=== PATIENT | female | born 1940 | race African-American/Black ===

== ENCOUNTER 2018-09-04 14:11 | Emergency (ER) | payer MEDICARE, MEDICAID ==
[~2018-09-04] VITALS: Ht 160 cm; Wt 54.4 kg
[2018-09-04] MEDS ORDERED: NACL 0.9% 1,000 ML IV ONE (14:15)
[2018-09-04] MEDS ORDERED: FUROSEMIDE 40 MG/4 ML VIAL IVP ONE (14:15)
[2018-09-04] MEDS ORDERED: ASPIRIN 81 MG TAB.CHEW PO ONE (14:15)
[2018-09-04 14:20] VITALS: BP_SYST 208
[2018-09-04 14:43] LABS: BASOPHILS % (AUTO) 0.5 % (0.0-2.0); EOSINOPHILS # (AUTO) 0.1 K/uL (0.0-0.4); EOSINOPHILS % (AUTO) 2.3 % (0.0-4.0); HEMATOCRIT 32.7 % (36-48); HEMOGLOBIN 10.8 g/dL (12.0-16.0); LYMPHOCYTES # (AUTO) 0.9 K/uL (1.0-5.5); LYMPHOCYTES % (AUTO) 16.9 % (20.5-51.5); MEAN CORPUSCULAR HEMOGLOBIN 29 pg (27-31); MEAN CORPUSCULAR HGB CONC 33 % (32-36); MEAN CORPUSCULAR VOLUME 89 fL (79.0-98.0); MONOCYTES # (AUTO) 0.4 K/uL (0.0-1.0); MONOCYTES % (AUTO) 7.7 % (1.7-9.3); NEUTROPHILS # (AUTO) 3.9 K/uL (1.8-7.7); NEUTROPHILS % (AUTO) 72.6 % (40.0-70.0); PLATELET COUNT (AUTO) 167 K/uL (130-430); RED BLOOD CELL COUNT(AUTO) 3.69 MIL/uL (4.2-6.2); RED CELL DISTRIBUTION WIDTH 14.3 % (9.0-15.0); WHITE BLOOD COUNT (AUTO) 5.3 K/uL (4.8-10.8)
[2018-09-04] MEDS ORDERED: LIP80 PO (14:54)
[2018-09-04] MEDS ORDERED: CLOP300T2 PO (14:54)
[2018-09-04] MEDS ORDERED: NOR10 PO (14:54)
[2018-09-04 15:02] LABS: ANION GAP 7 (5-15); CHLORIDE 108 mmol/L (98-107); CREATININE 2.25 mg/dL (0.55-1.30); GLUCOSE 116 mg/dL (70-99); POTASSIUM 4.4 mmol/L (3.5-5.1); SODIUM SERUM 138 mmol/L (136-145); UREA NITROGEN, BLOOD 40 mg/dL (8-21)
[2018-09-04 15:07] LABS: ALANINE AMINOTRANSFERASE 16 U/L (12-78); ALBUMIN 2.8 g/dL (3.4-4.8); AMYLASE 54 U/L (0-100); ASPARTATE AMINOTRANSFERASE 25 U/L (10-37); LIPASE 152 U/L (73-393); TOTAL BILIRUBIN 0.4 mg/dL (0.0-1.0)
[2018-09-04 15:23] LABS: BILIRUBIN,URINE NEGATIVE (NEGATIVE); BLOOD, URINE 1+ (NEGATIVE); CLARITY/URINE SL CLOUDY (CLEAR); COLOR,URINE YELLOW (YELLOW); GLUCOSE,URINE NEGATIVE (NEGATIVE); KETONES,URINE NEGATIVE (NEGATIVE); LEUKOCYTE ESTERASE ,URINE TRACE (NEGATIVE); NITRITE, URINE NEGATIVE (NEGATIVE); PH,URINE 6.5 (5.0-8.0); PROTEIN URINE 3+ (NEGATIVE); UROBILINOGEN,URINE 0.2 (0.2-1.0)
[2018-09-04 15:29] LABS: PROTHROMBIN TIME 9.9 SECS (9.5-12.5)
[2018-09-04 15:44] LABS: BACTERIA,URINE MANY /HPF (None Seen)
[2018-09-04 15:45] LABS: MUCUS,URINE 1+ /LPF (None Seen); YEAST,URINE None Seen /HPF (None Seen)
[2018-09-04] MEDS ORDERED: cloNIDine HCL 0.1 MG TABLET PO ONE (15:45)
[2018-09-04] MEDS ORDERED: cefTRIAXone 1 GM IVPB PREMIX 50 ML IV ONE (16:00)
[2018-09-04 18:45] VITALS: BP_SYST 199
== END 2018-09-04 18:45 | disposition short-term general hospital (02) ==
LOC: SED 14:11
DX: I13.0 Hypertensive heart and chronic kidney disease with heart failure and stage 1 through stage 4 chronic kidney disease, or unspecified chronic kidney disease (principal); E11.22 Type 2 diabetes mellitus with diabetic chronic kidney disease; N18.9 Chronic kidney disease, unspecified; I50.9 Heart failure, unspecified; N30.90 Cystitis, unspecified without hematuria; R60.0 Localized edema; J91.8 Pleural effusion in other conditions classified elsewhere; R91.8 Other nonspecific abnormal finding of lung field; Z86.73 Personal history of transient ischemic attack (TIA), and cerebral infarction without residual deficits; Z79.899 Other long term (current) drug therapy
CPT/HCPCS: 36415; 70450; 71045; 80053; 81000; 82150; 82550; 83605; 83690; 83880; 84484; 85025; 85610; 85730; 87040; 87086; 87186; 93005; 96365; 96375; 99285; J0696; J1940; J7030

== ENCOUNTER 2018-12-31 12:39 | Inpatient (IN) | payer OTHER ==
[2018-12-31] VITALS (7 sets, daily range): BP systolic 134–171
[~2018-12-31] VITALS: Ht 162.6 cm; Wt 46.7 kg
[~2018-12-31 12:39] MED LIST: CLOP300T2 PO; LIP80 PO; NOR10 PO
--- NOTE | 2018-12-31 12:45 | NUR ---
TRIAGED AND BROUGHT BACK TO BED#4 VIA WHEELCHAIR, PT WITH LOW O2 SAT, NO DISTRESS, PT EATING COOKIES. CALLED DR CAIN TO BEDSIDE. REPORT GIVEN TO ROSALINDA
--- NOTE | 2018-12-31 13:00 | NUR ---
ER at bedside examining patient.
--- NOTE | 2018-12-31 13:15 | NUR ---
RT AT BEDSIDE FOR ABG
--- NOTE | 2018-12-31 13:30 | NUR ---
PT 'S O2 SAT IMPROVED TO 98% ON 15L NRB.
--- NOTE | 2018-12-31 14:00 | NUR ---
PT'S O2 SAT AT 97%.
[2018-12-31 14:28] LABS: HEMATOCRIT 25.7 % (36-48); HEMOGLOBIN 8.5 g/dL (12.0-16.0); MEAN CORPUSCULAR VOLUME 89 fL (79.0-98.0); RED BLOOD CELL COUNT(AUTO) 2.88 MIL/uL (4.2-6.2)
[2018-12-31 14:29] LABS: LYMPHOCYTES % (AUTO) 9.7 % (20.5-51.5); MEAN CORPUSCULAR HEMOGLOBIN 29 pg (27-31); MEAN CORPUSCULAR HGB CONC 33 % (32-36); MONOCYTES % (AUTO) 6.8 % (1.7-9.3); NEUTROPHILS % (AUTO) 82.4 % (40.0-70.0); PLATELET COUNT (AUTO) 141 K/uL (130-430); RED CELL DISTRIBUTION WIDTH 26.6 % (9.0-15.0)
[2018-12-31 14:30] LABS: BASOPHILS % (AUTO) 0.6 % (0.0-2.0); EOSINOPHILS % (AUTO) 0.5 % (0.0-4.0); LYMPHOCYTES # (AUTO) 0.5 K/uL (1.0-5.5); MONOCYTES # (AUTO) 0.3 K/uL (0.0-1.0); NEUTROPHILS # (AUTO) 4.2 K/uL (1.8-7.7)
[2018-12-31 14:45] LABS: ANION GAP 9 (5-15); CALCIUM 9.3 mg/dL (8.4-11.0); CHLORIDE 96 mmol/L (98-107); CREATININE 4.51 mg/dL (0.55-1.30); GLUCOSE 164 mg/dL (70-99); POTASSIUM 5.5 mmol/L (3.5-5.1); SODIUM SERUM 132 mmol/L (136-145); UREA NITROGEN, BLOOD 48 mg/dL (8-21)
[2018-12-31 14:50] LABS: ALANINE AMINOTRANSFERASE 41 U/L (12-78); ALBUMIN 3.3 g/dL (3.4-4.8); ASPARTATE AMINOTRANSFERASE 45 U/L (10-37); TOTAL BILIRUBIN 0.8 mg/dL (0.0-1.0)
[2018-12-31 14:54] LABS: INR 1.1 (0.8-1.2); PROTHROMBIN TIME 10.9 SECS (9.5-12.5)
--- NOTE | 2018-12-31 15:00 | NUR ---
PT TOLERATED MEDICATED WELL.PT GIVEN PUDDING TOLERATED PO INTAKE WELL.
[2018-12-31] MEDS ORDERED: ASPIRIN 81 MG TAB.CHEW PO ONE (15:15)
--- NOTE | 2018-12-31 15:20 | NUR ---
PT'S FAMILY UNCERTAIN OF CERTIFIED SKI PATROLLER.PT RECEIVES DIALYSIS AT [facility] [place] IN [place]. PT'S FAMILY NAME IS DR. GramajoLAST DIALYSIS ON THURSDAY. PT'S SCHEDULE THU,THU, THURSDAY.
--- NOTE | 2018-12-31 16:12 | NUR ---
Patient will be admitted to care of DR.PALIWAL Henriquez Admitted to TELEMETRY unit. Will go to room 130A. Summary report printed. Report will be given at bedside.
--- NOTE | 2018-12-31 16:33 | NUR ---
ADMISSION NOTE Received patient from ER via niyahrjosseline. Report received from Carson MCCARTY. Patient admitted with diagnosis of Pulmn effusion. Patient is awake. Patient informed that Emelyn will will be her nurse and that their room number is 130-a. Personal belongings checked and Belongings List documented. Call light within reach.
--- NOTE | 2018-12-31 16:48 | NUR ---
CONSULTATION PAGED REASON FOR CONSULTATION:ELEVATED TROPONIN WAS CONSULT CALLED?Y PERSON WHO WAS NOTIFIED:GATITO CONSULTING PHYSICIAN:ELLIOT CAMPBELL SALES ROUTE DRIVER HELPER SPECIALTY:CARDIO SALES ROUTE DRIVER HELPER PHONE NUMBER:[phone] REQUESTING PHYSICIAN:SAM CAMPBELL
--- NOTE | 2018-12-31 16:56 | NUR ---
CONSULTATION PAGED REASON FOR CONSULTATION:PULMONARY EFFUSION WAS CONSULT CALLED?Y PERSON WHO WAS NOTIFIED:RALF BARDALES CONSULTING PHYSICIAN:JOSE REILLY (RALF BARDALES SALESPERSON [employer]) FRETTED STRING INSTRUMENT REPAIRER SPECIALTY:PULMONARY FRETTED STRING INSTRUMENT REPAIRER PHONE NUMBER:[phone] REQUESTING PHYSICIAN:SAM CAMPBELL
--- NOTE | 2018-12-31 17:06 | NUR ---
PAGED PAGED SAM CAMPBELL AT [phone] SPOKE WITH GATITO.
[2018-12-31] MEDS ORDERED: ASPIRIN 325 MG TABLET PO ONE (17:15)
[2018-12-31] MEDS ORDERED: FUROSEMIDE 40 MG/4 ML VIAL IVP ONE (17:15)
--- NOTE | 2018-12-31 17:30 | NUR ---
PATIENT TRANSFERRED FROM [facility] FOR CLOSE MONITORING, PATIENT SEEN AWAKE, NOT IN ACUTE DISTRESS. O2 @ 100% NRBM SPO2 - 97%. SINUS RHYTHM ON THE MONITOR, INITIAL VITALS CHECKED AND RECORDED. DIALYSIS ACCESS NOTED ON THE RIGHT SUBCLAVIAN. PATIENT KEPT COMFORTABLE. WILL CONTINUE TO MONITOR.
--- NOTE | 2018-12-31 18:13 | NUR ---
SAM BECKMAN AT [phone] SPOKE WITH GATITO TO INFORM HIM THE PATIENT WAS TRANSFERRED TO ICU.
--- NOTE | 2018-12-31 18:15 | NUR ---
SPOKE TO DR. Florence FREGOSO, WITH ORDERS CARRIED OUT.
--- NOTE | 2018-12-31 18:16 | NUR ---
CALL PLACED TO DR. Florence FREGOSO FOR ORDERS. SPOKE TO GATITO (VINICIUS)
--- NOTE | 2018-12-31 18:20 | NUR ---
FAMILY AT BEDSIDE AT THIS TIME.
--- NOTE | 2018-12-31 18:33 | NUR ---
CONSULT: DR. CASTANEDA NEPHRO CONSULT CALLED TO DR. CASTANEDA'S EXCHANGE, DR. Leela BLACKMON IS COVERING FOR HIM. SPOKE TO YESENIA (EXCHANGE)
--- NOTE | 2018-12-31 19:29 | NUR ---
ENDORSEMENT: Gave SBAR report and endorsed plan of care to night RN
--- NOTE | 2018-12-31 20:00 | NUR ---
AWAKE, ALERT. IN NO APPARENT DISTRESS. HEMODIALYSIS ON GOING.
[2018-12-31] MEDS ORDERED: ONDANSETRON HCL 4 MG/2 ML VIAL IVP PRN (21:45)
[2018-12-31] MEDS ORDERED: MORPHINE 4 MG/ML INJ. SYRINGE IVP PRN ×2 (21:45)
[2018-12-31] MEDS ORDERED: NORMAL SALINE 5 ML DISP.SYRIN IVF SCH (22:00)
[2018-12-31] MEDS: NORMAL SALINE 5 ML DISP.SYRIN IVF SCH (22:00)
--- NOTE | 2018-12-31 22:15 | NUR ---
HEMODIALYSIS DONE, 2 LITERS OUT. PT SATURATING 100% ON 100% NON-REBREATHER MASK. PLACED ON 2 L/NASAL CANNULA.
--- NOTE | 2018-12-31 23:00 | NUR ---
DESATURATING IN THE 80'S. NASAL CANNULA INCREASED TO 4L/MIN.
[2019-01-01] VITALS (24 sets, daily range): BP systolic 124–191
--- NOTE | 2019-01-01 | NUR ---
NON-COMPLIANT AND UPSET. SLIGHTLY CONFUSED. DAUGHTER AT BEDSIDE CONSOLING.
[2019-01-01] MEDS: LORazepam 2 MG/ML VIAL IVP PRN ×2 (00:59→08:39)
[2019-01-01] MEDS: NORMAL SALINE 5 ML DISP.SYRIN IVF SCH ×3 (01:00→21:58)
--- NOTE | 2019-01-01 01:00 | NUR ---
ATIVAN 1 MG IVP GIVEN FOR AGITATION. BP LABILE.
--- NOTE | 2019-01-01 02:00 | NUR ---
PT CALMER. DAUGHTER LEFT FOR HOME.
--- NOTE | 2019-01-01 03:30 | NUR ---
CHG BATH GIVEN. SKIN INTACT. DRSG ON BONY PROMINENCE IN SACRUM CHANGED. SKIN CARE, LUIZ-CARE, BACK CARE GIVEN. PARTIAL LINEN CHANGE DONE. DOES NOT ASSIST WITH TURNING. KIKO PROC WELL.
--- NOTE | 2019-01-01 04:00 | NUR ---
REPOSITIONED. BOUTS OF CONFUSION. TAKES OFF NASAL CANNULA AT TIMES, DESATURATES. NEEDS FREQUENT INSTRUCTIONS AND INTERVENTIONS.
[2019-01-01 05:09] LABS: HEMATOCRIT 25.4 % (36-48); HEMOGLOBIN 8.2 g/dL (12.0-16.0); MEAN CORPUSCULAR HEMOGLOBIN 29 pg (27-31); MEAN CORPUSCULAR HGB CONC 32 % (32-36); MEAN CORPUSCULAR VOLUME 91 fL (79.0-98.0); PLATELET COUNT (AUTO) 134 K/uL (130-430); RED CELL DISTRIBUTION WIDTH 26.9 % (9.0-15.0); WHITE BLOOD COUNT (AUTO) 4.9 K/uL (4.8-10.8)
[2019-01-01 05:10] LABS: BASOPHILS % (AUTO) 0.3 % (0.0-2.0); EOSINOPHILS # (AUTO) 0.1 K/uL (0.0-0.4); EOSINOPHILS % (AUTO) 2.4 % (0.0-4.0); LYMPHOCYTES # (AUTO) 0.7 K/uL (1.0-5.5); LYMPHOCYTES % (AUTO) 13.3 % (20.5-51.5); MONOCYTES # (AUTO) 0.4 K/uL (0.0-1.0); MONOCYTES % (AUTO) 8.5 % (1.7-9.3); NEUTROPHILS # (AUTO) 3.7 K/uL (1.8-7.7); NEUTROPHILS % (AUTO) 75.5 % (40.0-70.0)
[2019-01-01 05:23] LABS: ANION GAP 6 (5-15); CHLORIDE 104 mmol/L (98-107); CREATININE 2.24 mg/dL (0.55-1.30); GLUCOSE 100 mg/dL (70-99); POTASSIUM 4.1 mmol/L (3.5-5.1); SODIUM SERUM 141 mmol/L (136-145); UREA NITROGEN, BLOOD 19 mg/dL (8-21)
[2019-01-01 05:32] LABS: ALANINE AMINOTRANSFERASE 31 U/L (12-78); ALBUMIN 2.9 g/dL (3.4-4.8); ASPARTATE AMINOTRANSFERASE 39 U/L (10-37); PHOSPHORUS 2.7 mg/dL (2.7-4.5); TOTAL BILIRUBIN 0.6 mg/dL (0.0-1.0)
--- NOTE | 2019-01-01 06:00 | NUR ---
DOZES ON AND OFF. BP LABILE. ANURIC. NO COMPLAINTS OFFERED AT THIOS TIME. REMAINS IN GUARDED CONDITION.
--- NOTE | 2019-01-01 06:39 | NUR ---
Nutrition Update John Scale 16 noted. Pt admitted for Pulmonary Effusion, Renal Failure Diet: NPO BMI: 16.7 kg/m2 RD to follow per nutrition care standards.
--- NOTE | 2019-01-01 07:15 | NUR ---
Received endorsement and patient from [facility] shift nurse. Patient in bed with side rails x 2 up, call light in reach.
--- NOTE | 2019-01-01 08:15 | NUR ---
Respiratory therapist Nahed placed patient on oximizer 6 liters.
[2019-01-01] MEDS: ATORVASTATIN 20 MG TABLET PO SCH ×2 (08:38→09:00)
[2019-01-01] MEDS: CLOPIDOGREL BISULFATE 75 MG TABLET PO SCH ×2 (08:38→09:00)
[2019-01-01] MEDS: amLODIPine BESYLATE 10 MG TABLET PO SCH (08:39)
--- NOTE | 2019-01-01 09:04 | NUR ---
Respiratory therapist Nahed placed patient on oximizer 8 liters.
--- NOTE | 2019-01-01 09:05 | NUR ---
Patient refused 0900 Lipitor and Plavix after receiving education and offering x 3.
[2019-01-01] MEDS ORDERED: LORazepam 2 MG/ML VIAL IVP PRN (09:30)
[2019-01-01] MEDS ORDERED: D5/0.45 NS 1,000 ML IV SCH (09:45)
[2019-01-01] MEDS ORDERED: hydrALAZINE HCL 20 MG/ML VIAL IVP PRN (09:45)
[2019-01-01] MEDS ORDERED: LOSARTAN POTASSIUM 25 MG TABLET PO ONE (12:00)
[2019-01-01] MEDS ORDERED: METOPROLOL SUCCINATE 25 MG TAB.SR.24H (TOPROL XL) PO ONE (12:00)
--- NOTE | 2019-01-01 13:15 | NUR ---
Called MD Sriram Short regarding blood pressure 176/51. New order to discontinue IV fluids, place swallow evaluation for tomorrow. Orders placed and carried out.
--- NOTE | 2019-01-01 13:53 | NUR ---
Called Md Sriram Short regarding blood pressure 179/79. New order to change original hydralazine IV order to every 4 hours PRN instead of every 6. New order Labetolol 10 mg IVP every 6 hours PRN first dose now. Orders placed and carried out.
--- NOTE | 2019-01-01 14:00 | NUR ---
MD Clarke at bedside.
[2019-01-01] MEDS ORDERED: LABETALOL 100 MG/ 20ML VIAL ONE (14:07)
--- NOTE | 2019-01-01 14:20 | NUR ---
Dietitian Recommendations *If/when medically appropriate, advance diet to Renal Standard diet w/ Nepro BID. ONS will provide additional 850 kcal and 38 gm protein daily. *If PO intake is not warranted in 48 hrs, consider an alternate route of nutrition support. Please see Nutritional Assessment for details. HARLEY, RD
--- NOTE | 2019-01-01 15:45 | NUR ---
RT NOTES Pt. undergoing dialysis. no signs of respiratory distress noted.
[2019-01-01] MEDS ORDERED: HEPARIN SODIUM,PORCINE 5000 UNITS/ML VIAL ONE (16:23)
--- NOTE | 2019-01-01 19:25 | NUR ---
PM SHIFT ASSESSMENT Pt resting in bed. VSS. Safety precautions in place, call light within reach. Will continue to monitor.
--- NOTE | 2019-01-01 19:29 | NUR ---
Gave report and handed patient to oncoming nurse. Patient in bed in no acute distress noted. No complain of bed. Side rails x 2 up. Call light in reach.
[2019-01-01] MEDS: hydrALAZINE HCL 20 MG/ML VIAL IVP PRN (21:56)
[2019-01-01] MEDS: LABETALOL 100 MG/ 20ML VIAL IVP PRN (23:47)
[2019-01-02] VITALS (24 sets, daily range): BP systolic 159–217
[2019-01-02] MEDS: hydrALAZINE HCL 20 MG/ML VIAL IVP PRN ×4 (02:17→19:18)
[2019-01-02 04:43] LABS: HEMATOCRIT 27.2 % (36-48); HEMOGLOBIN 8.9 g/dL (12.0-16.0); MEAN CORPUSCULAR VOLUME 90 fL (79.0-98.0); RED BLOOD CELL COUNT(AUTO) 3.02 MIL/uL (4.2-6.2)
[2019-01-02 04:44] LABS: BASOPHILS # (AUTO) 0.1 K/uL (0.0-0.2); BASOPHILS % (AUTO) 0.5 % (0.0-2.0); EOSINOPHILS # (AUTO) 0.1 K/uL (0.0-0.4); EOSINOPHILS % (AUTO) 2.2 % (0.0-4.0); LYMPHOCYTES # (AUTO) 0.7 K/uL (1.0-5.5); LYMPHOCYTES % (AUTO) 11.4 % (20.5-51.5); MEAN CORPUSCULAR HEMOGLOBIN 30 pg (27-31); MEAN CORPUSCULAR HGB CONC 33 % (32-36); MONOCYTES # (AUTO) 0.4 K/uL (0.0-1.0); NEUTROPHILS # (AUTO) 4.8 K/uL (1.8-7.7); NEUTROPHILS % (AUTO) 78.9 % (40.0-70.0); PLATELET COUNT (AUTO) 150 K/uL (130-430); RED CELL DISTRIBUTION WIDTH 27.5 % (9.0-15.0)
[2019-01-02 05:00] LABS: ANION GAP 8 (5-15); CALCIUM 9.2 mg/dL (8.4-11.0); CHLORIDE 102 mmol/L (98-107); CREATININE 1.86 mg/dL (0.55-1.30); GLUCOSE 77 mg/dL (70-99); POTASSIUM 3.4 mmol/L (3.5-5.1); SODIUM SERUM 140 mmol/L (136-145); UREA NITROGEN, BLOOD 11 mg/dL (8-21)
[2019-01-02 05:06] LABS: ALANINE AMINOTRANSFERASE 27 U/L (12-78); ALBUMIN 3.1 g/dL (3.4-4.8); ASPARTATE AMINOTRANSFERASE 24 U/L (10-37); PHOSPHORUS 2.3 mg/dL (2.7-4.5); TOTAL BILIRUBIN 0.7 mg/dL (0.0-1.0)
[2019-01-02] MEDS: LABETALOL 100 MG/ 20ML VIAL IVP PRN ×3 (05:47→17:35)
[2019-01-02] MEDS: NORMAL SALINE 5 ML DISP.SYRIN IVF SCH ×3 (05:48→21:45)
--- NOTE | 2019-01-02 07:32 | NUR ---
ENDORSEMENT PT care endorsed to dayshift RN at bedside using nursing SBAR.
--- NOTE | 2019-01-02 07:35 | NUR ---
Opening Note Patient received sleeping in bed. Patient on monitoring coordinator with NSR. Patient breathing evenly and unlabored on 8L oxygen via oximizer. Patient has a left 20 gauge AC patent, flushing well, and saline-locked. Patient also has a left subclavian dialysis catheter in place. Patient skin intact. Safety precautions in place. Call light in reach.
[2019-01-02 08:19] LABS: HEPATITIS A AB, IgM Negative (Negative); HEPATITIS B CORE AB, IgM Negative (Negative); HEPATITIS B SURFACE AG Negative (Negative)
[2019-01-02] MEDS: LOSARTAN POTASSIUM 25 MG TABLET PO SCH (09:00)
[2019-01-02] MEDS: CLOPIDOGREL BISULFATE 75 MG TABLET PO SCH (09:00)
[2019-01-02] MEDS: amLODIPine BESYLATE 10 MG TABLET PO SCH (09:00)
[2019-01-02] MEDS: ATORVASTATIN 20 MG TABLET PO SCH (09:00)
[2019-01-02] MEDS: METOPROLOL SUCCINATE 25 MG TAB.SR.24H (TOPROL XL) PO SCH (09:00)
--- NOTE | 2019-01-02 09:06 | NUR ---
Swallow Evaluation MD ordered swallow eval, called and left message to confirm eval.
--- NOTE | 2019-01-02 11:28 | NUR ---
Follow-Up Phone call for Swallow Evaluation Second call placed to and left message to confirm evaluation. Awaiting call back.
[2019-01-02] MEDS ORDERED: K PHOS 15 MM in NS 250 ML IV ONE (11:45)
--- NOTE | 2019-01-02 12:00 | NUR ---
RN Rounds Patient awake with family @ bedside. VS being monitored. No signs of acute distress noted. Reinforced teachings ans safety precautions. Call light in reach.
--- NOTE | 2019-01-02 12:20 | NUR ---
RN Update Made MD aware of AM medications being held due to NPO status/pending swallow eval. No new orders received at this time.
[2019-01-02] MEDS ORDERED: D5W 1,000 ML IV PRN (14:15)
[2019-01-02] MEDS ORDERED: GLUCOSE 15 GM GEL (in 37.5 GM TUBE) PO PRN (14:15)
[2019-01-02] MEDS ORDERED: DEXTROSE 50%-WATER 50 ML DISP.SYRIN IVP PRN (14:15)
[2019-01-02] MEDS ORDERED: cloNIDine HCL 0.1 MG/24 HR PATCH.TDWK TD SCH (15:30)
--- NOTE | 2019-01-02 16:00 | NUR ---
RN Rounds Patient asleep in bed. Patient has no signs of acute distress. VS being closely monitored. Reinforced safety precautions and use of call light.
--- NOTE | 2019-01-02 17:18 | NUR ---
Swallow Evaluation Thelma called to confirm that she will be here "first thing in the am", pts family is informed.
--- NOTE | 2019-01-02 19:25 | NUR ---
Endorsement Patient endorsed to night cleaner RN using SBAR. Patient is in no signs of acute distress. Safety precautions in place. Call light in reach.
--- NOTE | 2019-01-02 20:00 | NUR ---
ASSESSMENT Pt resting quietly, arouses when name is called. Oxygen in use, oxymizer 8L/min. Right upper chest with dialysis catheter, dressing intact. No redness or swelling noted @ site. Saline lock present left upper arm, no redness or swelling noted @ site. Skin intact. 3 small scabs noted on right leg.
--- NOTE | 2019-01-02 22:52 | NUR ---
DR NEYMAR Clarke notified regarding Pt's elevated SBP 180-200, orders received. 1. Hydralazine 10mg IVP Q 2H PRN. 2. Labetalol 200mg PO BID 3. Labetalol 200mg PO Now
[2019-01-02] MEDS ORDERED: LABETALOL HCL 100 MG TABLET PO ONE (23:00)
[2019-01-03] VITALS (24 sets, daily range): BP systolic 106–185
[2019-01-03] MEDS: hydrALAZINE HCL 20 MG/ML VIAL IVP PRN ×3 (00:32→06:09)
[2019-01-03] MEDS: LABETALOL 100 MG/ 20ML VIAL IVP PRN (02:09)
--- NOTE | 2019-01-03 05:00 | NUR ---
RIGHT LEG Right Knee upper scab 0.8mm X 0.7mm, right knee lower 0.5mm x 0.5mm and right great toe 0.5mm X 0.5mm. All scabs intact open to air.
[2019-01-03] MEDS: NORMAL SALINE 5 ML DISP.SYRIN IVF SCH ×3 (06:01→21:27)
[2019-01-03 06:28] LABS: HEMATOCRIT 24.9 % (36-48); HEMOGLOBIN 8.2 g/dL (12.0-16.0); MEAN CORPUSCULAR VOLUME 91 fL (79.0-98.0); RED BLOOD CELL COUNT(AUTO) 2.73 MIL/uL (4.2-6.2); WHITE BLOOD COUNT (AUTO) 4.7 K/uL (4.8-10.8)
[2019-01-03 06:29] LABS: MEAN CORPUSCULAR HEMOGLOBIN 30 pg (27-31); MEAN CORPUSCULAR HGB CONC 33 % (32-36); PLATELET COUNT (AUTO) 129 K/uL (130-430); RED CELL DISTRIBUTION WIDTH 27.6 % (9.0-15.0)
[2019-01-03 06:30] LABS: BASOPHILS % (AUTO) 0.5 % (0.0-2.0); EOSINOPHILS # (AUTO) 0.1 K/uL (0.0-0.4); LYMPHOCYTES # (AUTO) 0.5 K/uL (1.0-5.5); LYMPHOCYTES % (AUTO) 11.5 % (20.5-51.5); MONOCYTES # (AUTO) 0.4 K/uL (0.0-1.0); MONOCYTES % (AUTO) 8.2 % (1.7-9.3); NEUTROPHILS # (AUTO) 3.7 K/uL (1.8-7.7); NEUTROPHILS % (AUTO) 77.8 % (40.0-70.0)
--- NOTE | 2019-01-03 06:47 | NUR ---
BLOOD PRESSURE Pt given Apresoline IVP X3, Trandate IVP X1, and Trandate 200mg PO X1, over the last 12H, SBP remains @ 170's.
[2019-01-03 06:57] LABS: ALANINE AMINOTRANSFERASE 22 U/L (12-78); ALBUMIN 2.9 g/dL (3.4-4.8); ANION GAP 5 (5-15); ASPARTATE AMINOTRANSFERASE 19 U/L (10-37); CALCIUM 9.2 mg/dL (8.4-11.0); CHLORIDE 101 mmol/L (98-107); CREATININE 2.97 mg/dL (0.55-1.30); GLUCOSE 77 mg/dL (70-99); PHOSPHORUS 4.8 mg/dL (2.7-4.5); POTASSIUM 3.8 mmol/L (3.5-5.1); SODIUM SERUM 136 mmol/L (136-145); TOTAL BILIRUBIN 0.9 mg/dL (0.0-1.0); UREA NITROGEN, BLOOD 24 mg/dL (8-21)
--- NOTE | 2019-01-03 07:15 | NUR ---
OPENING NOTE: Received SBAR report and plan of care from assistant shift supervisor RN
[2019-01-03] MEDS: CLOPIDOGREL BISULFATE 75 MG TABLET PO SCH (08:30)
[2019-01-03] MEDS: ATORVASTATIN 20 MG TABLET PO SCH (08:30)
[2019-01-03] MEDS: LOSARTAN POTASSIUM 25 MG TABLET PO SCH (08:31)
[2019-01-03] MEDS: amLODIPine BESYLATE 10 MG TABLET PO SCH (08:32)
[2019-01-03] MEDS: METOPROLOL SUCCINATE 25 MG TAB.SR.24H (TOPROL XL) PO SCH (09:00)
[2019-01-03] MEDS: LABETALOL HCL 100 MG TABLET PO SCH ×2 (09:00→21:00)
--- NOTE | 2019-01-03 09:25 | NUR ---
S.T. SWALLOW EVAL COMPLETED. PT PRESENTS W/ ML-MOD ORAL DYSPHAGIA W/ PROLONGED MASTICATION. NO S/S OF ASPIRATION. REC: [facility] SOFT FINELY CHOPPED DIET. THIN LIQUIDS OK. NURSE DANIELLA NOTIFIED. DTR IN AGREEMENT W/ RESULTS AND REC. [id number] CJ G8997 CJ G8998 CJ NOMS LEVEL 5
[2019-01-03] MEDS ORDERED: HEPARIN SODIUM,PORCINE 5000 UNITS/ML VIAL ONE (11:46)
--- NOTE | 2019-01-03 12:15 | NUR ---
DIALYSIS nurse at bedside for hemodialysis, scheduled THU-THU-THU
--- NOTE | 2019-01-03 14:10 | NUR ---
RESPIRATORY at bedside, titrated O2 down to 3LPM
--- NOTE | 2019-01-03 15:30 | NUR ---
PATIENT SEEN BY DR. IVNES, WITH ORDERS.
--- NOTE | 2019-01-03 15:45 | NUR ---
CHG: CHG bath given, gown and linens changed, patient tolerated well with minimal discomfort.
[2019-01-03] MEDS: INSULIN REGULAR, HUMAN 100 UNITS/ML, 10 ML VIAL (novoLIN R) SUBCUT PRN (17:58)
--- NOTE | 2019-01-03 20:00 | NUR ---
EYES CLOSED, RESPONSIVE TO VERBAL, TACTILE AND NOXIOUS STIMULI. ANSWERED "I'M DOING FINE" WHEN ASKED HOW SHE WAS DOING. ON O2 AT 8L/MIN/OXYMIZER. POX 100%. DECREASED O2 TO 4L/MIN/OXYMIZER BY RT. BREATH SOUNDS CLEAR. BOWEL SOUNDS (+). PULSES PALPABLE. SKIN W/D. COLOR SATISFACTORY. HOB UP TO COMFORT. SIDE RAILS UP CALL LIGHTS WITHIN REACH. TURNED.
--- NOTE | 2019-01-03 22:00 | NUR ---
FELT WARM, BLANKETS LIGHTENED. HS ACREj. REPOSITIONED.
[2019-01-04] VITALS (18 sets, daily range): BP systolic 93–169
--- NOTE | 2019-01-04 | NUR ---
ACCU-CHEK 109, NO INSULIN DUE PER SLIDING SCALE COV. APRESOLINE 10 MG IVP GIVEN FOR BP 159/61. TURNED.
[2019-01-04] MEDS: INSULIN REGULAR, HUMAN 100 UNITS/ML, 10 ML VIAL (novoLIN R) SUBCUT PRN ×4 (00:20→17:03)
[2019-01-04] MEDS: hydrALAZINE HCL 20 MG/ML VIAL IVP PRN ×2 (00:25→04:08)
--- NOTE | 2019-01-04 02:00 | NUR ---
TRANDATE 10 MG IVP GIVEN FOR BP 166/76. 0 DISTRESS. REPOSITIONED.
[2019-01-04] MEDS: LABETALOL 100 MG/ 20ML VIAL IVP PRN (02:17)
--- NOTE | 2019-01-04 04:00 | NUR ---
SLEPT FOR LONG PERIODS OF TIME. APRESOLINE 10 MG IVP GIVEN FOR BP 167/64. OCCASIONALLY TAKES OFF OXIMIZER. INSTRUCTED NOT TO. TURNED.
--- NOTE | 2019-01-04 06:00 | NUR ---
SLEPT MOST OF NOC. TURNED Q2 HRS. ACCU-CHEK 94, NO INSULIN DUE PER SLIDING SCALE COV. NO COMPLAINTS OFFERED AT THIS TIME. REMAINS IN GUARDED CONDITION.
[2019-01-04] MEDS: NORMAL SALINE 5 ML DISP.SYRIN IVF SCH ×3 (06:06→20:29)
[2019-01-04 06:17] LABS: BASOPHILS % (AUTO) 0.6 % (0.0-2.0); EOSINOPHILS # (AUTO) 0.2 K/uL (0.0-0.4); EOSINOPHILS % (AUTO) 4.4 % (0.0-4.0); HEMATOCRIT 27.2 % (36-48); HEMOGLOBIN 8.8 g/dL (12.0-16.0); LYMPHOCYTES # (AUTO) 0.8 K/uL (1.0-5.5); LYMPHOCYTES % (AUTO) 14.6 % (20.5-51.5); MEAN CORPUSCULAR HEMOGLOBIN 29 pg (27-31); MEAN CORPUSCULAR HGB CONC 32 % (32-36); MEAN CORPUSCULAR VOLUME 91 fL (79.0-98.0); MONOCYTES # (AUTO) 0.5 K/uL (0.0-1.0); MONOCYTES % (AUTO) 9.4 % (1.7-9.3); NEUTROPHILS # (AUTO) 3.8 K/uL (1.8-7.7); PLATELET COUNT (AUTO) 157 K/uL (130-430); RED BLOOD CELL COUNT(AUTO) 2.98 MIL/uL (4.2-6.2); WHITE BLOOD COUNT (AUTO) 5.4 K/uL (4.8-10.8)
[2019-01-04 06:28] LABS: ANION GAP 3 (5-15); CALCIUM 8.8 mg/dL (8.4-11.0); CHLORIDE 100 mmol/L (98-107); GLUCOSE 98 mg/dL (70-99); POTASSIUM 3.6 mmol/L (3.5-5.1); SODIUM SERUM 135 mmol/L (136-145); UREA NITROGEN, BLOOD 21 mg/dL (8-21)
[2019-01-04 06:29] LABS: ALANINE AMINOTRANSFERASE 18 U/L (12-78); ALBUMIN 2.8 g/dL (3.4-4.8); ASPARTATE AMINOTRANSFERASE 16 U/L (10-37); CREATININE 2.53 mg/dL (0.55-1.30); PHOSPHORUS 2.8 mg/dL (2.7-4.5); TOTAL BILIRUBIN 0.7 mg/dL (0.0-1.0)
--- NOTE | 2019-01-04 07:05 | NUR ---
RN opening note Received SBAR report at bedside from endorsing nurse. Pt AAOx4, no complaint of discomfort. See VS flow sheet.
--- NOTE | 2019-01-04 07:06 | NUR ---
Dr. Martin at bedside
[2019-01-04] MEDS: LOSARTAN POTASSIUM 25 MG TABLET PO SCH (09:24)
[2019-01-04] MEDS: ATORVASTATIN 20 MG TABLET PO SCH (09:25)
[2019-01-04] MEDS: amLODIPine BESYLATE 10 MG TABLET PO SCH (09:26)
[2019-01-04] MEDS: CLOPIDOGREL BISULFATE 75 MG TABLET PO SCH (09:26)
[2019-01-04] MEDS: METOPROLOL SUCCINATE 25 MG TAB.SR.24H (TOPROL XL) PO SCH (09:27)
[2019-01-04] MEDS: LABETALOL HCL 100 MG TABLET PO SCH ×2 (09:30→20:28)
--- NOTE | 2019-01-04 10:05 | NUR ---
Dr. Slaughter at bedside OK to downgrade to Tele
--- NOTE | 2019-01-04 10:39 | NUR ---
NIEVES PLANNING Received call from Shonna @ [facility], ph [phone], that pt is under their services.
--- NOTE | 2019-01-04 11:48 | NUR ---
Orders received to downgrade to Telemetry Continuing care in ICU-6 until a telemetry bed becomes available.
[2019-01-04] MEDS ORDERED: ACETAMINOPHEN 325 MG TABLET PO PRN (12:00)
--- NOTE | 2019-01-04 14:03 | NUR ---
Nutrition F/U Admitting Diagnosis Pulmonary Effusion, Renal Failure Reviewed Pertinent Medical/Surgical Hx Medical Record Patient Primary RN Medical History Comment: Pt found w/: Acute hypoxic respiratory Failure, Bilateral Pleural Effusion, Elevated Troponin level R/O Myocardial infarction, ESRD on HD, Anemia, HTN, H/O CVA per Pulmonary Consultation notes. Subjective Information ST swallow eval completed 01/03/19; ST rec for mechanical soft, finely chopped diet w/ thin liquids. Per RN, pt tolerated breakfast well, ate some cream of wheat and eggs. RD met w/ pt at bedside prior to lunch -- pt reported that she is not having any difficulty w/ chewing/swallowing, and that she has an appetite for lunch. RD provided lunch tray and placed at bedside for pt. Pt stated that her daughter brought it a strawberry-flavored Ensure supplement that she drank w/ breakfast. Pt denied any N/V/C/D. Pt reported last BM was yesterday. Pt pending transfer for telemetry unit from ICU today. Current Diet Order/Nutrition Support Renal, finely chopped, mechanical soft x1 day Patient/Significant Other Able To Verbalize Education Provided Not Indicated Pertinent Medications lipitor Pertinent Labs BG 98 WNL (improved), POC BG 94 WNL, CRE 2.53 H, Alb 2.8 L, H/H 8.8 L/27.2 L Height (Feet) 5 feet Height (Inches) 4.00 inches Weight (Pounds) 97 pounds (01/01/19). NEW WT: 95 lb (01/03/19) BEDSCALE WT: 111 lb (01/04/19) -- likely skewed d/t bedding/linen Weight (Calculated Kilograms) 43.161759 kilograms Patient Weight 43.998 kg Body Mass Index 16.65 kg/m2 %IBW 81 [place]/Adjusted Body Weight 120 lb, 55 kg Recent Weight Change No - per daughter Weight Status Emaciated Difficulty With: Swallowing Food Allergies Yes - Honey per daughter; RD input into [employer] allergy list Usual Diet At Home Regular diet and Renal diet Skin Integrity Comment: John scale: 15; per nursing notes, lower R leg w/ dry scab; edema to R foot: non-pitting Current % PO 75% average x4 meals Estimated Energy Expenditure (kcals/day) 8424-6891 kcal/day (30-35 kcal/kg IBW for dialysis status) Estimated Protein Required (g/day) 66-72 gm/day (1.2-1.3 gm/kg IBW for Renal Dz on dialysis) Estimated Fluid Required (l/day) per MD (Renal Dz) Problem/Etiology/Signs/Symptoms Severe underweight for age r/t chronic illness AEB BMI 16.7 kg/m2 and 81% IBW. *ongoing Expected Outcomes/Goals - Monitor advancement of diet, appetite and PO intake w/ goal of pt meeting at least 75% of estimated nutritional needs, labs trending WNL, normal GI function, skin integrity/wt maintenance. Dietitian Recommendations * Recommend renal diet w/ Ensure Enlive TID (ONS provides an additional 1050 kcal/day and 60 gm protein/day) Follow Up Moderate Risk: F/U in 3-5 days
--- NOTE | 2019-01-04 14:13 | NUR ---
Dietitian Recommendations * Recommend renal diet w/ Ensure Enlive TID (ONS provides an additional 1050 kcal/day and 60 gm protein/day) LP, RD Please refer to Nutrition F/U for details.
--- NOTE | 2019-01-04 14:30 | NUR ---
Pt transferred to Telemetry 107-B Pt transported via bed with turnstile collector and O@ therapy, accompanied by 2 nurses per ACLS guidelines. SBAR report endorsed at bedside to receiving RN. Pt's belongings transferred with PT, family notified of transfer.
--- NOTE | 2019-01-04 14:38 | NUR ---
Discharge Planning: CHAR FILTER OPERATOR HELPER has left a message for pt's dtr, Tess ([phone]) to discuss DC planning to SNF for pt.
--- NOTE | 2019-01-04 14:45 | NUR ---
INITIAL NOTE RECEIVED PT FROM ICU, NO S/S OF DISTRESS OR SOB NOTED, PT HAS NO C/O PAIN AT THIS TIME, PT IN STABLE CONDITION, PT AAOX4, VERBAL. PT ON OXYGEN 4 LITERS VIA OXYMIZER, SATURATION OF 100%. PT HAS AN IV CATHETER PATENT, SALINE LOCK. PT HAS BILATERAL SCD'S IN PLACE. SAFETY AND FALL PRECAUTIONS IN PLACE. BED AT LOWEST POSITION, CALL LIGHT WITHIN REACH, WILL CONTINUE TO MONITOR PT FOR ANY CHANGES. PT HAS A RIGHT SUBCLAVIAN BHAVNA CATHETER, DRESSING CLEAN AND DRY.
--- NOTE | 2019-01-04 16:55 | NUR ---
ROUNDS PT IN BED, NO S/S OF DISTRESS OR SOB NOTED, PT HAS NO C/O PAIN AT THIS TIME, PT IN STABLE CONDITION, PT RESTING COMFORTABLY.
--- NOTE | 2019-01-04 16:57 | NUR ---
PAGED PAGED SAM CAMPBELL AT [phone] SPOKE WITH EXCHANGE.
[2019-01-04] MEDS: HYDROcodone/ACETAMIN 5-325 MG TAB (NORCO/ VICODIN) PO PRN (17:02)
--- NOTE | 2019-01-04 17:12 | NUR ---
CALL DR ILDEFONSO COLEMAN TO MAKE HIM AWARE THAT PT HAS NO HAD A BOWEL MOVEMENT IN SINCE ADMISSION. AWAITING CALL BACK. Addendum: 01/04/19 at 1820 by Lisa Apodaca RN CALLED BACK AND GAVE NEW ORDERS
--- NOTE | 2019-01-04 18:16 | NUR ---
Second call for Sriram Monsalve s/w Beatriz.
--- NOTE | 2019-01-04 18:21 | NUR ---
CLOSING NOTE PT IN BED, NO S/S OF DISTRESS OR SOB NOTED, PT HAS NO C/O PAIN AT THIS TIME, PT IN STABLE CONDITION, PT AAOX4, VERBAL. PT ON OXYGEN 4 LITERS VIA OXYMIZER, SATURATION OF 100%. PT HAS AN IV CATHETER PATENT, SALINE LOCK. PT HAS BILATERAL SCD'S IN PLACE. SAFETY AND FALL PRECAUTIONS IN PLACE. BED AT LOWEST POSITION, CALL LIGHT WITHIN REACH, WILL ENDORSE CARE OF PT TO INCOMING NURSE.
--- NOTE | 2019-01-04 19:30 | NUR ---
INITIAL NOTES RECEIVED HANDOFF REPORT FROM OFFGOING NURSE AT THE BEDSIDE. PATIENT IS AWAKE, ALERT, AND ORIENTED. CURRENTLY RESTING COMFORTABLY IN BED. VISION IMPAIRED. PLACED CALL LIGHT IN THE PATIENT'S HANDS AND ASSISTED PATIENT IN FEELING THE BUTTONS NEEDED TO CALL NURSE ASSIST. CURRENTLY ON 4L OXYMIZER. NO SOB, NO ACUTE DISTRESS, NO COMPLAINTS OF PAIN AT THIS TIME. IV SITE IS INTACT, DRESSING CLEAN AND DRY, SALINE LOCKED. RIGHT SUBCLAVIAN BHAVNA CATH PRESENT, NO REDNESS OR IRRITATION NOTED FROM THE SITE. BED IS LOCKED, IN THE LOWEST POSITION, 2X SIDE RAILS UP, BED ALARM IS ON. EXPLAINED PLAN OF CARE TO THE PATIENT. PATIENT VERBALIZES UNDERSTANDING. WILL CONTINUE WITH PLAN OF CARE.
[2019-01-04] MEDS: DOCUSATE SODIUM 100 MG CAPSULE PO SCH (20:26)
--- NOTE | 2019-01-04 22:06 | NUR ---
PATIENT CURRENTLY RESTING COMFORTABLY IN BED, AWAKE. ASSISTED PATIENT TO TURN AND REPOSITION. NO SOB, NO ACUTE DISTRESS, NO COMPLAINTS OF PAIN AT THIS TIME. CALL LIGHT TO LEFT HAND. ENCOURAGED PATIENT TO CALL FOR ASSISTANCE.
--- NOTE | 2019-01-04 23:54 | NUR ---
PATIENT IS RESTING COMFORTABLY IN BED WITH EYES CLOSED. CURRENTLY ON 4L OXYMIZER. BREATHING EVEN AND UNLABORED WITH VISIBLE CHEST RISE AND FALL NOTED. BED IS LOCKED, IN THE LOWEST POSITION, 2X SIDE RAILS UP, BED ALARM IS ON. CALL LIGHT IS WITHIN REACH.
[2019-01-05 00:36] VITALS: BP_SYST 126
--- NOTE | 2019-01-05 02:00 | NUR ---
PATIENT RESTING COMFORTABLY IN BED, SLEEPING. NO SOB, NO ACUTE DISTRESS, NO SIGNS OF PAIN OR FACIAL GRIMACING NOTED. BREATHING EVEN AND UNLABORED WITH VISIBLE CHEST RISE AND FALL NOTED. BED IS LOCKED, IN THE LOWEST POSITION, 2X SIDE RAILS UP, BED ALARM IS ON. CALL LIGHT IS WITHIN REACH.
--- NOTE | 2019-01-05 04:08 | NUR ---
PATIENT RESTING COMFORTABLY IN BED, SLEEPING. BREATHING EVEN AND UNLABORED WITH VISIBLE CHEST RISE AND FALL NOTED. NO SOB, NO ACUTE DISTRESS. NO SIGNS OF PAIN. CALL LIGHT IS WITHIN REACH.
[2019-01-05] MEDS: NORMAL SALINE 5 ML DISP.SYRIN IVF SCH ×3 (05:40→20:04)
--- NOTE | 2019-01-05 06:03 | NUR ---
PROVIDED APPLE JUICE FOR THE PATIENT TO DRINK. PATIENT RESTING COMFORTABLY IN BED, AWAKE BUT EYES ARE CLOSED. NO SOB, NO ACUTE DISTRESS, NO COMPLAINTS OF PAIN AT THIS TIME. BED IS LOCKED, IN THE LOWEST POSITION, 2X SIDE RAILS UP, BED ALARM IS ON. CALL LIGHT WITHIN REACH. ENCOURAGED PATIENT TO CALL FOR ASSISTANCE.
--- NOTE | 2019-01-05 06:28 | NUR ---
CLOSING NOTES PATIENT IS RESTING COMFORTABLY IN BED WITH EYES CLOSED. BREATHING EVEN AND UNLABORED WITH VISIBLE CHEST RISE AND FALL NOTED. PICCLINE SITE INTACT, DRESSING CLEAN AND DRY. BED IS LOCKED, IN THE LOWEST POSITION, 2X SIDE RAILS UP, BED ALARM IS ON. CALL LIGHT IS WITHIN REACH. FALL AND SAFETY PRECAUTIONS MAINTAINED. ALL NEEDS HAVE BEEN MET DURING THIS SHIFT. WILL ENDORSE CARE TO [facility]. Addendum: 01/05/19 at 0630 by Lucina Blackburn RN CORRECTION* PATIENT HAS AN IV SITE THAT IS INTACT, DRESSING CLEAN AND DRY.
[2019-01-05 07:10] LABS: BASOPHILS % (AUTO) 0.6 % (0.0-2.0); EOSINOPHILS # (AUTO) 0.3 K/uL (0.0-0.4); EOSINOPHILS % (AUTO) 5.9 % (0.0-4.0); HEMATOCRIT 24.2 % (36-48); HEMOGLOBIN 7.9 g/dL (12.0-16.0); LYMPHOCYTES # (AUTO) 0.9 K/uL (1.0-5.5); MEAN CORPUSCULAR HEMOGLOBIN 30 pg (27-31); MEAN CORPUSCULAR HGB CONC 33 % (32-36); MEAN CORPUSCULAR VOLUME 91 fL (79.0-98.0); MONOCYTES # (AUTO) 0.5 K/uL (0.0-1.0); MONOCYTES % (AUTO) 10.6 % (1.7-9.3); NEUTROPHILS # (AUTO) 2.9 K/uL (1.8-7.7); NEUTROPHILS % (AUTO) 63.9 % (40.0-70.0); PLATELET COUNT (AUTO) 139 K/uL (130-430); RED BLOOD CELL COUNT(AUTO) 2.67 MIL/uL (4.2-6.2); RED CELL DISTRIBUTION WIDTH 25.5 % (9.0-15.0); WHITE BLOOD COUNT (AUTO) 4.6 K/uL (4.8-10.8)
[2019-01-05 07:13] LABS: ANION GAP 7 (5-15); CALCIUM 8.5 mg/dL (8.4-11.0); CHLORIDE 101 mmol/L (98-107); CREATININE 3.58 mg/dL (0.55-1.30); GLUCOSE 109 mg/dL (70-99); POTASSIUM 3.8 mmol/L (3.5-5.1); SODIUM SERUM 137 mmol/L (136-145); UREA NITROGEN, BLOOD 37 mg/dL (8-21)
[2019-01-05 07:20] LABS: PHOSPHORUS 3.2 mg/dL (2.7-4.5)
[2019-01-05 08:04] VITALS: BP_SYST 164
--- NOTE | 2019-01-05 08:10 | NUR ---
OPENING NOTES patient received resting in bed with eyes closed, breathing is even and unlabored on 2l oximizer, no acute distress or pain is noted at this time, will continue to monitor, educated patient on plan of care and call light system, safety precautions in place, call light within reach.
[2019-01-05] MEDS: DOCUSATE SODIUM 100 MG CAPSULE PO SCH ×2 (08:46→20:00)
[2019-01-05] MEDS: ATORVASTATIN 20 MG TABLET PO SCH (08:46)
[2019-01-05] MEDS: CLOPIDOGREL BISULFATE 75 MG TABLET PO SCH (08:46)
[2019-01-05] MEDS: amLODIPine BESYLATE 10 MG TABLET PO SCH (09:00)
[2019-01-05] MEDS: LABETALOL HCL 100 MG TABLET PO SCH ×2 (09:00→20:01)
[2019-01-05] MEDS: METOPROLOL SUCCINATE 25 MG TAB.SR.24H (TOPROL XL) PO SCH (09:00)
[2019-01-05] MEDS: LOSARTAN POTASSIUM 25 MG TABLET PO SCH (09:00)
--- NOTE | 2019-01-05 10:30 | NUR ---
NOTES physical therapy was able to work with patient at this time, patient was able to sit on the edge of the bed and dangle her feet well, no acute distress or pain is noted, breathing is even and unlabored on 2l oximizer, will continue to monitor, safety precautions in place, call light within reach.
--- NOTE | 2019-01-05 11:19 | NUR ---
BLOOD SUGAR IS 89 AT THIS TIME, EDUCATED PATIENT TO EAT LUNCH AND SNACKS, PATIENT VERBALIZED UNDERSTANDING.
[2019-01-05 11:59] VITALS: BP_SYST 165
--- NOTE | 2019-01-05 12:29 | NUR ---
NOTES patient is receiving dialysis at this time, no acute distress is noted, breathing is even and unlabored on 2l nasal cannula, will continue to monitor, safety precautions in place, call light within reach.
--- NOTE | 2019-01-05 14:35 | NUR ---
NOTES patient is resting in bed receiving dialysis at this time, breathing is even and unlabored on 2l oximizer, no acute distress or pain is noted, patient tolerated lunch well, will continue to monitor, safety precautions in place, call light within reach.
[2019-01-05] MEDS ORDERED: HEPARIN SODIUM,PORCINE 5000 UNITS/ML VIAL IV ONE ×2 (14:45)
[2019-01-05 15:49] VITALS: BP_SYST 102
--- NOTE | 2019-01-05 16:04 | NUR ---
Discharge Planning: CM spoke with pt's dtr; pt's dtr has requested at SNF in [place] or [place]. CHILD WELFARE COUNSELOR has faxed referrals to [facility] ([phone] f.[phone]) and [facility] ([phone] f.[phone]).
--- NOTE | 2019-01-05 16:41 | NUR ---
NOTES patient is resting in bed watching tv, patient denies any acute distress or pain at this time, breathing is even and unlabored on 2l oximizer, dialysis is finished at this time, patient tolerated well, will continue to monitor, safety precautions in place, call light within reach.
[2019-01-05] MEDS ORDERED: EPOETIN ALFA 4,000 UNITS/ML VIAL SUBCUT SCH (17:00)
--- NOTE | 2019-01-05 17:46 | NUR ---
BLOOD SUGAR IS 89, NO INSULIN COVERAGE NEEDED PER SLIDING SCALE, EDUCATED PATIENT TO EAT DINNER AND SNACKS, PATIENT VERBALIZED UNDERSTANDING.
--- NOTE | 2019-01-05 18:52 | NUR ---
CLOSING NOTE patient is resting in bed A&O x4, breathing is even and unlabored on 2l oximizer, patient denies any acute distress, patient states she is having pain in her right leg, offered patient pain medications but patient stated she will take it later after her family leaves because it makes her sleepy, patient tolerated dinner well, all needs were met throughout shift, will endorse report to oncoming nurse, safety precautions in place, call light within reach, family at bedside.
--- NOTE | 2019-01-05 19:31 | NUR ---
INITIAL NOTES RECEIVED HANDOFF REPORT FROM OFFGOING NURSE AT THE BEDSIDE. PATIENT IS RESTING COMFORTABLY IN BED, AWAKE AND ALERT. NO SOB, NO ACUTE DISTRESS, NO COMPLAINTS OF PAIN AT THIS TIME. CURRENTLY ON 2L OXYMIZER. BED IS LOCKED, IN THE LOWEST POSITION, 2X SIDE RAILS UP, BED ALARM IS ON. CALL LIGHT IS WITHIN REACH. ENCOURAGED PATIENT TO CALL FOR ASSISTANCE. WILL CONTINUE WITH PLAN OF CARE. DAUGHTER IS AT THE BEDSIDE.
--- NOTE | 2019-01-05 19:33 | NUR ---
DAUGHTER-VEGA CALLED WANTING TO SPEAK TO THE PATIENT. ASSISTED PATIENT WITH BEDSIDE TELEPHONE DEVICE.
[2019-01-05 20:00] VITALS: BP_SYST 150
[2019-01-05] MEDS: HYDROcodone/ACETAMIN 5-325 MG TAB (NORCO/ VICODIN) PO PRN (20:02)
--- NOTE | 2019-01-05 21:56 | NUR ---
PATIENT RESTING COMFORTABLY IN BED WITH EYES CLOSED. BREATHING EVEN AND UNLABORED WITH VISIBLE CHEST RISE AND FALL NOTED. CURRENTLY ON 2L OXYMIZER. NO SOB, NO ACUTE DISTRESS. BED IS LOCKED, IN THE LOWEST POSITION, 2X SIDE RAILS UP, BED ALARM IS ON. CALL LIGHT IS WITHIN REACH.
[2019-01-05] MEDS: LABETALOL 100 MG/ 20ML VIAL IVP PRN (23:35)
--- NOTE | 2019-01-05 23:35 | NUR ---
PATIENT HAS HIGH BLOOD PRESSURE. PROVIDED MEDICATION NEEDED PER MD ORDER, SEE EMAR FOR DETAILS. ALSO PROVIDED PATIENT WITH APPLE JUICE. CLAMPER AT THE BEDSIDE COMPLETING INCONTINENCE CARE FOR THE PATIENT. PATIENT IS NOW RESTING COMFORTABLY IN BED. NO SOB, NO ACUTE DISTRESS, NO COMPLAINTS OF PAINA T THIS TIME. BE DIS LOCKED, IN THE LOWEST POSITION, 2X SIDE RAILS UP. BED ALARM IS ON. CALL LIGHT IS WITHIN REACH.
[2019-01-06 01:01] VITALS: BP_SYST 168
--- NOTE | 2019-01-06 02:00 | NUR ---
PROVIDED PATIENT WITH APPLE JUICE SNACK PER PATIENT REQUEST.
--- NOTE | 2019-01-06 04:01 | NUR ---
PATIENT RESTING COMFORTABLY IN BED, EYES CLOSED. BREATHING EVEN AND UNLABORED WITH VISIBLE CHEST RISE AND FALL NOTED. BED IS LOCKED, IN THE LOWEST POSITION, 2X SIDE RAILS UP, BED ALARM IS ON. CALL LIGHT IS WITHIN REACH. STABLE.
[2019-01-06] MEDS: NORMAL SALINE 5 ML DISP.SYRIN IVF SCH ×2 (05:21→14:34)
--- NOTE | 2019-01-06 06:00 | NUR ---
PATIENT RESTING COMFORTABLY IN BED WITH EYES CLOSED. NO SOB, NO ACUTE DISTRESS, NO SIGNS OF PAIN OR FACIAL GRIMACING NOTED. EASILY AROUSABLE TO TOUCH. PROVIDED PATIENT WITH APPLE JUICE. CALL LIGHT IS WITHIN REACH.
[2019-01-06 07:04] LABS: CHLORIDE 95 mmol/L (98-107); GLUCOSE 86 mg/dL (70-99); PHOSPHORUS 3.1 mg/dL (2.7-4.5); SODIUM SERUM 132 mmol/L (136-145); UREA NITROGEN, BLOOD 25 mg/dL (8-21)
[2019-01-06 07:05] LABS: EOSINOPHILS # (AUTO) 0.3 K/uL (0.0-0.4); EOSINOPHILS % (AUTO) 6.8 % (0.0-4.0); HEMATOCRIT 27.1 % (36-48); LYMPHOCYTES % (AUTO) 25.4 % (20.5-51.5); MEAN CORPUSCULAR HEMOGLOBIN 30 pg (27-31); MEAN CORPUSCULAR HGB CONC 33 % (32-36); MEAN CORPUSCULAR VOLUME 91 fL (79.0-98.0); MONOCYTES # (AUTO) 0.4 K/uL (0.0-1.0); MONOCYTES % (AUTO) 11.5 % (1.7-9.3); NEUTROPHILS # (AUTO) 2.1 K/uL (1.8-7.7); NEUTROPHILS % (AUTO) 55.3 % (40.0-70.0); PLATELET COUNT (AUTO) 142 K/uL (130-430); RED BLOOD CELL COUNT(AUTO) 2.99 MIL/uL (4.2-6.2); WHITE BLOOD COUNT (AUTO) 3.8 K/uL (4.8-10.8)
[2019-01-06 07:19] LABS: ANION GAP 6 (5-15); POTASSIUM 3.5 mmol/L (3.5-5.1)
[2019-01-06 07:37] LABS: RED CELL DISTRIBUTION WIDTH 24.8 % (9.0-15.0)
--- NOTE | 2019-01-06 07:40 | NUR ---
CLOSING NOTES HANDOFF REPORT GIVEN TO ONCOMING DAYSHIFT NURSE BRITTON AT THE BEDSIDE. PATIENT IS RESTING COMFORTABLY IN BED WITH EYES CLOSED. BREATHING EVEN AND UNLABORED WITH VISIBLE CHEST RISE AND FALL NOTED. NO SOB, NO ACUTE DISTRESS, NO SIGNS OF PAIN OR FACIAL GRIMACING NOTED. CURRENTLY ON 2L OXYMIZER. IV SITE INTACT, DRESSING CLEAN AND DRY, SALINE LOCKED. BED IS LOCKED, IN THE LOWEST POSITION, 2X SIDE RAILS UP, BED ALARM IS ON. CALL LIGHT IS WITHIN REACH. FALL AND SAFETY PRECAUTIONS MAINTAINED. ALL NEEDS HAVE BEEN MET DURING THIS SHIFT.
[2019-01-06 08:07] VITALS: BP_SYST 152
--- NOTE | 2019-01-06 08:10 | NUR ---
OPENING NOTE patient received resting in bed with eyes closed, breathing is even and unlabored on 2L oximizer, no acute distress or pain is noted at this time, will continue to monitor, safety precautions in place, call light within reach.
[2019-01-06] MEDS: METOPROLOL SUCCINATE 25 MG TAB.SR.24H (TOPROL XL) PO SCH (09:00)
[2019-01-06] MEDS: LABETALOL HCL 100 MG TABLET PO SCH ×2 (09:00→21:00)
[2019-01-06] MEDS: DOCUSATE SODIUM 100 MG CAPSULE PO SCH ×2 (09:33→20:59)
[2019-01-06] MEDS: LOSARTAN POTASSIUM 25 MG TABLET PO SCH (09:35)
[2019-01-06] MEDS: CLOPIDOGREL BISULFATE 75 MG TABLET PO SCH (09:36)
[2019-01-06] MEDS: ATORVASTATIN 20 MG TABLET PO SCH (09:36)
[2019-01-06] MEDS: amLODIPine BESYLATE 10 MG TABLET PO SCH (09:39)
--- NOTE | 2019-01-06 09:45 | NUR ---
HELD METOPROLOL PATIENT HEART RATE WAS LESS THAN 70.
--- NOTE | 2019-01-06 11:03 | NUR ---
Discharge Planning: Meredith BARRETO ([phone] f.[phone]) accepted pt to [facility], vaughn was informed. Addendum: 01/06/19 at 1658 by Nimco CASANOVA Meredith ([phone] [phone]) accepted pt to [facility], THIEN updated packet and took to nurse station. Nurse to arrange transportation .
[2019-01-06] MEDS: INSULIN REGULAR, HUMAN 100 UNITS/ML, 10 ML VIAL (novoLIN R) SUBCUT PRN (11:44)
--- NOTE | 2019-01-06 11:47 | NUR ---
BLOOD SUGAR IS 162, 2 UNITS OF REGULAR INSULIN GIVEN PER SLIDING SCALE.
[2019-01-06 11:59] VITALS: BP_SYST 134
--- NOTE | 2019-01-06 12:45 | NUR ---
NOTES patient is eating lunch in bed at this time, patient denies any pain or distress, breathing is even and unlabored on 2l oximizer, will continue to monitor, safety precautions in place, call light within reach.
--- NOTE | 2019-01-06 14:00 | NUR ---
NOTES patient is up working with physical therapy at this time, patient is tolerating well, no sob or acute distress, breathing even and unlabored on 2l oximizer, will continue to monitor, safety precautions in place, call light within reach.
--- NOTE | 2019-01-06 16:17 | NUR ---
CLOSING NOTE patient is resting in bed A&O x4, patient denies any acute distress or pain at this time, breathing is even and unlabored on 2l oximizer, patient tolerated dinner well, all needs were met throughout shift, will endorse report to oncoming nurse, safety precautions in place, call light within reach.
--- NOTE | 2019-01-06 16:53 | NUR ---
NOTES patient is resting in bed with eyes closed, breathing is even and unlabored on 2l oximizer, no acute distress or pain is noted, assisted patient to use bedpan, will continue to monitor, safety precautions in place, call light within reach.
[2019-01-06 17:04] VITALS: BP_SYST 134
[2019-01-06 17:10] VITALS: BP_SYST 137
[2019-01-06] MEDS ORDERED: LOSA25TA3 PO (18:07)
[2019-01-06] MEDS ORDERED: METO-540 PO (18:07)
[2019-01-06] MEDS ORDERED: EPOE40003 SUBCUT (18:07)
[2019-01-06] MEDS ORDERED: DOCU-144 PO (18:07)
[2019-01-06] MEDS ORDERED: LABE100T5 PO (18:07)
--- NOTE | 2019-01-06 18:52 | NUR ---
CLOSING NOTE patient is resting in bed A&O x4, patient denies any acute distress or pain at this time, breathing is even and unlabored on 2l oximizer, patient tolerated dinner well, all needs were met throughout shift, will endorse report to oncoming nurse, safety precautions in place, call light within reach. Addendum: 01/06/19 at 1853 by Fatoumata Stroud RN disregard note, wrong time
--- NOTE | 2019-01-06 19:41 | NUR ---
INITIAL NOTES RECEIVED HANDOFF REPORT FROM OFFGOING DAYSHIFT NURSE AT THE BEDSIDE. PATIENT IS CURRENTLY RESTING COMFORTABLY IN BED WITH EYES CLOSED, EASILY AROUSABLE TO VOICE. NO SOB, NO ACUTE DISTRESS, NO COMPLAINTS OF PAIN AT THIS TIME. BED IS LOCKED, IN THE LOWEST POSITION, 2X SIDE RAILS UP, BED ALARM IS ON. CALL LIGHT IS WITHIN REACH. ENCOURAGED PATIENT TO CALL FOR ASSISTANCE. WILL CONTINUE WITH PLAN OF CARE.
--- NOTE | 2019-01-06 19:47 | NUR ---
REPORT [facility].
[2019-01-06 20:00] VITALS: BP_SYST 156
--- NOTE | 2019-01-06 21:20 | NUR ---
D/C Patient Patient given medication reconciliation form and D/C instructions. Exit Care provided. Patient verbalized understanding. discussed with patient the results and treatment provided. Patient in stable condition, ID band removed. Patient educated on pain management. All belongings sent with patient. PATIENT LEFT WITH DEION LYNN ([facility]) VIA GURNEY TO [facility]. ALL NEEDS HAVE BEEN MET DURING THIS SHIFT.
== END 2019-01-06 21:20 | DRG 280 ==
LOC: SED 12:39 → STU 15:56 → SIC 16:12 → STU 16:15 → SIC 17:37 → STU 01-04 14:44 → SMU 01-06 19:07
PROVIDERS: ADMIT Preventive Medicine Preventive Medicine/Occupational Environmental Medicine; ATTEND Preventive Medicine Preventive Medicine/Occupational Environmental Medicine
PROC: 5A1D70Z Performance of Urinary Filtration, Intermittent, Less than 6 Hours Per Day (ICD-10-PCS; principal; 2018-12-31)
PROC: 5A1D70Z Performance of Urinary Filtration, Intermittent, Less than 6 Hours Per Day (ICD-10-PCS; 2019-01-01)
PROC: 5A1D70Z Performance of Urinary Filtration, Intermittent, Less than 6 Hours Per Day (ICD-10-PCS; 2019-01-03)
PROC: 5A1D70Z Performance of Urinary Filtration, Intermittent, Less than 6 Hours Per Day (ICD-10-PCS; 2019-01-04)
PROC: 5A1D70Z Performance of Urinary Filtration, Intermittent, Less than 6 Hours Per Day (ICD-10-PCS; 2019-01-06)
DX: I13.2 Hypertensive heart and chronic kidney disease with heart failure and with stage 5 chronic kidney disease, or end stage renal disease (principal); I50.33 Acute on chronic diastolic (congestive) heart failure; I21.A1 Myocardial infarction type 2; J96.01 Acute respiratory failure with hypoxia; N18.6 End stage renal disease; E87.1 Hypo-osmolality and hyponatremia; D61.818 Other pancytopenia; I69.351 Hemiplegia and hemiparesis following cerebral infarction affecting right dominant side; J90 Pleural effusion, not elsewhere classified; E78.5 Hyperlipidemia, unspecified; D63.8 Anemia in other chronic diseases classified elsewhere; E11.21 Type 2 diabetes mellitus with diabetic nephropathy; E11.22 Type 2 diabetes mellitus with diabetic chronic kidney disease; E11.42 Type 2 diabetes mellitus with diabetic polyneuropathy; E11.65 Type 2 diabetes mellitus with hyperglycemia; E83.39 Other disorders of phosphorus metabolism; E83.42 Hypomagnesemia; E87.5 Hyperkalemia; Z79.899 Other long term (current) drug therapy; Z99.2 Dependence on renal dialysis
CPT/HCPCS: 36415; 36600; 71045; 80048; 80053; 80074; 82803-TC; 82962; 83605; 83735-TC; 83880; 84100-TC; 84484; 85025; 85610-TC; 85730-TC; 87081; 90935; 90937; 92610-GN; 93005; 93306; 94760; 97110-GP; 97112-GP; 97163; 97530-GP; 99285; G0378; J0360; J0885; J1644; J1815; J1940; J2060; J3490; J7030; J7050

== ENCOUNTER 2019-07-06 17:34 | Inpatient (IN) | payer OTHER ==
[~2019-07-06] VITALS: Ht 160 cm; Wt 39.1 kg
--- NOTE | 2019-07-06 03:11 | NUR ---
Rounds: Patient is asleep, no acute distress noted. Even, unlabored breathing on room air. IV antibiotics infusing per MD order. Call light with patient. Will continue to monitor. Addendum: 07/07/19 at 0608 by Lam Davenport RN Correction: please disregard, wrong date.
[~2019-07-06 17:34] MED LIST changes: +DOCU-144 PO; +EPOE40003 SUBCUT; +LABE100T5 PO; +LOSA25TA3 PO; +METO-540 PO
[2019-07-06 17:35] VITALS: BP_SYST 189
--- NOTE | 2019-07-06 17:35 | NUR ---
Patient to ER bed 6 to gown for evaluation. Side rails up. Report given to LUL Vega.
--- NOTE | 2019-07-06 17:36 | NUR ---
Patient is awake and lethargic. Daughter is at bedside. Daughter reports that the patient has been nauseous after hemodialysis on Thursday. Patient has missed hemodialysis today due to nausea and was told to come in to the ER. Patient denies pain at this time.
--- NOTE | 2019-07-06 18:00 | NUR ---
ER Dr. Hawkins at bedside examining patient.
[2019-07-06] MEDS ORDERED: ONDANSETRON HCL 4 MG/2 ML VIAL IVP ONE (18:15)
[2019-07-06] MEDS ORDERED: NS 250 ML IV ONE (18:30)
[2019-07-06 19:14] LABS: ANION GAP 7 (5-15); BASOPHILS % (AUTO) 0.3 % (0.0-2.0); CALCIUM 10.3 mg/dL (8.4-11.0); CHLORIDE 96 mmol/L (98-107); CREATININE 4.47 mg/dL (0.55-1.30); EOSINOPHILS % (AUTO) 0.8 % (0.0-4.0); GLUCOSE 107 mg/dL (70-99); HEMATOCRIT 39.9 % (36-48); HEMOGLOBIN 13.2 g/dL (12.0-16.0); LYMPHOCYTES # (AUTO) 0.3 K/uL (1.0-5.5); LYMPHOCYTES % (AUTO) 8.3 % (20.5-51.5); MEAN CORPUSCULAR HEMOGLOBIN 31 pg (27-31); MEAN CORPUSCULAR HGB CONC 33 % (32-36); MEAN CORPUSCULAR VOLUME 94 fL (79.0-98.0); MONOCYTES # (AUTO) 0.3 K/uL (0.0-1.0); MONOCYTES % (AUTO) 7.5 % (1.7-9.3); NEUTROPHILS # (AUTO) 2.9 K/uL (1.8-7.7); NEUTROPHILS % (AUTO) 83.1 % (40.0-70.0); PLATELET COUNT (AUTO) 116 K/uL (130-430); POTASSIUM 5.3 mmol/L (3.5-5.1); RED BLOOD CELL COUNT(AUTO) 4.25 MIL/uL (4.2-6.2); RED CELL DISTRIBUTION WIDTH 19.8 % (9.0-15.0); SODIUM SERUM 133 mmol/L (136-145); UREA NITROGEN, BLOOD 58 mg/dL (8-21); WHITE BLOOD COUNT (AUTO) 3.5 K/uL (4.8-10.8)
[2019-07-06 19:19] LABS: INR 1.2 (0.8-1.2); PROTHROMBIN TIME 11.7 SECS (9.5-12.5)
[2019-07-06 19:20] LABS: ALANINE AMINOTRANSFERASE 21 U/L (12-78); ASPARTATE AMINOTRANSFERASE 23 U/L (10-37); TOTAL BILIRUBIN 0.9 mg/dL (0.0-1.0)
[2019-07-06] MEDS ORDERED: SODIUM POLYSTYRENE SULFONATE 15 GM/60 ML UDBTL RC ONE (19:30)
--- NOTE | 2019-07-06 19:46 | NUR ---
Pt is lethargic and resting in bed. No episodes of nausea observed after medication administration. Will continue to monitor.
--- NOTE | 2019-07-06 20:30 | NUR ---
Pt is resting in bed, no acute distress noted at this time. Will continue to monitor.
--- NOTE | 2019-07-06 21:34 | NUR ---
ER Dr. Forrester at bedside examining patient.
--- NOTE | 2019-07-06 21:51 | NUR ---
Pt reported she produces urine. Dr. Forrester gave order for I&O catheter. # 16 FR In and Out catheter with use of sterile technique. Pt tolerated procedure well. Awaiting urine collection. Patient unable to toilet self.
--- NOTE | 2019-07-06 22:15 | NUR ---
# 22 gauge angiocath placed to RT Forearm. Use of asceptic technique. Opsite placed over site. Blood return noted. Blood for lab drawn from site. Flushed with 10 cc of normal saline. No evidence of infiltration noted. Patient tolerated well.
[2019-07-06] MEDS ORDERED: NIFE-2 PO (22:32)
[2019-07-06] MEDS ORDERED: LABE300T3 PO (22:32)
[2019-07-06] MEDS ORDERED: CLOP75TA32 PO (22:32)
[2019-07-06] MEDS ORDERED: FURO-149 PO (22:32)
[2019-07-06] MEDS ORDERED: MULT-1159 PO (22:32)
[2019-07-06] MEDS ORDERED: CYM30 PO (22:32)
[2019-07-06] MEDS ORDERED: ASPI-1153 PO (22:32)
--- NOTE | 2019-07-06 22:33 | NUR ---
Medication reconciliation completed with information provided by patient's daughter. Any prior medication reconciliation on file was reviewed and corrected.
[2019-07-06] MEDS ORDERED: LEVOFLOXACIN 500 MG/D5W 100 ML IV ONE (22:45)
--- NOTE | 2019-07-06 23:26 | NUR ---
Dr. Myers at bedside examining patient
[2019-07-07] MEDS ORDERED: IPRATROPIUM/ALBUTEROL SULFATE 3 ML AMPUL.NEB (DUONEB) INH PRN
--- NOTE | 2019-07-07 00:11 | NUR ---
Patient will be admitted to care of Dr. Myers. Admitted to telemetry unit. Will go to room 106A. Belongings list completed. Summary report printed. Report will be given at bedside.
[2019-07-07] MEDS ORDERED: ONDANSETRON HCL 4 MG/2 ML VIAL IVP PRN (00:30)
[2019-07-07] MEDS ORDERED: VANCOMYCIN HCL 500 MG in NS 100 ML IV SCH (00:30)
--- NOTE | 2019-07-07 00:35 | NUR ---
ADMISSION: The patient, FERN ROSEN, 79 y/o, F admitted by MARE HARE MD, with the diagnosis of ACUTE RENAL FAILURE AND HYPERKALEMIA , TO ROOM 106 A .
[2019-07-07 00:46] VITALS: BP_SYST 170
--- NOTE | 2019-07-07 00:46 | NUR ---
Transfer to telemetry via ACLS protocol. Licensed nurse present. IV present no signs or symptoms of infiltration.
--- NOTE | 2019-07-07 01:12 | NUR ---
Elevated BP: Made aware by SALOMON Lyon regarding patient's midnight BP of 194/92. Appresoline 10 MG IVP was administered as indicated. BP reassessed at this time is 156/88. Call light with patient. Will continue to monitor. Addendum: 07/08/19 at 0512 by Lam Davenport RN Please disregard above note, wrong date.
[2019-07-07] MEDS: cefTRIAXone 1 GM in D5W 50 ML IV SCH (01:21)
[2019-07-07] MEDS ORDERED: cefTRIAXone 1 GM IVPB PREMIX 50 ML IV ONE (01:31)
[2019-07-07] MEDS ORDERED: VANCOMYCIN HCL 500 MG/VIAL IV ONE (01:32)
--- NOTE | 2019-07-07 03:18 | NUR ---
Rounds: Patient is asleep, no acute distress noted. Even, unlabored breathing on room air. IV antibiotics infusing per MD order. Call light with patient. Will continue to monitor.
[2019-07-07 04:00] VITALS: BP_SYST 166
[2019-07-07 04:08] LABS: BILIRUBIN,URINE NEGATIVE (NEGATIVE); BLOOD, URINE 1+ (NEGATIVE); CLARITY/URINE SL CLOUDY (CLEAR); COLOR,URINE YELLOW (YELLOW); GLUCOSE,URINE NEGATIVE (NEGATIVE); KETONES,URINE NEGATIVE (NEGATIVE); LEUKOCYTE ESTERASE ,URINE 3+ (NEGATIVE); NITRITE, URINE NEGATIVE (NEGATIVE); PROTEIN URINE 3+ (NEGATIVE); UROBILINOGEN,URINE 0.2 (0.2-1.0)
[2019-07-07 04:32] LABS: BACTERIA,URINE MANY /HPF (None Seen); WBC,URINE >100 /HPF (0-3)
[2019-07-07 04:33] LABS: MUCUS,URINE 2+ /LPF (None Seen)
--- NOTE | 2019-07-07 04:47 | NUR ---
CONSULT: CONSULT CALLED FOR DR. GALLEGOS I SPOKE WITH JEAN COLVIN REASON FOR CONSULT: ESRD REQUESTING CONSULT: DR. HARE LEASE BUYER PHONE NUMBER: [phone]
--- NOTE | 2019-07-07 04:49 | NUR ---
CONSULT; CONSULT CALLED FOR DR. JAYSON ARAMBULA I SPOKE WITH JEAN COLVIN REASON FOR CONSULT: PL EFFUSION REQUESTING CONSULT: DR. HARE CARDIAC CARE NURSE PHONE NUMBER: [phone]
[2019-07-07 04:50] VITALS: BP_SYST 164
--- NOTE | 2019-07-07 06:05 | NUR ---
Closing note: Patient is awake in bed, no acute distress noted. IV sites right right forearm and left hand are patent and benign, saline locked. All needs met. Safety and fall precautions maintained. Hourly rounding performed throughout shift. Will endorse care to dayshift RN.
[2019-07-07 06:28] LABS: BASOPHILS % (AUTO) 0.3 % (0.0-2.0); EOSINOPHILS # (AUTO) 0.1 K/uL (0.0-0.4); EOSINOPHILS % (AUTO) 1.7 % (0.0-4.0); HEMATOCRIT 34.6 % (36-48); HEMOGLOBIN 11.5 g/dL (12.0-16.0); LYMPHOCYTES # (AUTO) 0.3 K/uL (1.0-5.5); LYMPHOCYTES % (AUTO) 8.4 % (20.5-51.5); MEAN CORPUSCULAR HEMOGLOBIN 31 pg (27-31); MEAN CORPUSCULAR HGB CONC 33 % (32-36); MEAN CORPUSCULAR VOLUME 94 fL (79.0-98.0); MONOCYTES # (AUTO) 0.4 K/uL (0.0-1.0); MONOCYTES % (AUTO) 10.8 % (1.7-9.3); NEUTROPHILS # (AUTO) 2.7 K/uL (1.8-7.7); NEUTROPHILS % (AUTO) 78.8 % (40.0-70.0); PLATELET COUNT (AUTO) 113 K/uL (130-430); RED BLOOD CELL COUNT(AUTO) 3.67 MIL/uL (4.2-6.2); RED CELL DISTRIBUTION WIDTH 19.3 % (9.0-15.0); WHITE BLOOD COUNT (AUTO) 3.5 K/uL (4.8-10.8)
[2019-07-07 06:54] LABS: ALANINE AMINOTRANSFERASE 20 U/L (12-78); ALBUMIN 3.6 g/dL (3.4-4.8); ANION GAP 11 (5-15); ASPARTATE AMINOTRANSFERASE 20 U/L (10-37); CALCIUM 9.8 mg/dL (8.4-11.0); CHLORIDE 96 mmol/L (98-107); FREE T4 (FREE THYROXINE) 0.9 ng/dl (0.8-1.5); GLUCOSE 92 mg/dL (70-99); LIPASE 804 U/L (73-393); POTASSIUM 5.6 mmol/L (3.5-5.1); SODIUM SERUM 136 mmol/L (136-145); THYROID STIMULATING HORMONE 3.31 uIu/mL (0.36-3.74); TOTAL BILIRUBIN 0.8 mg/dL (0.0-1.0); UREA NITROGEN, BLOOD 64 mg/dL (8-21)
--- NOTE | 2019-07-07 07:53 | NUR ---
INITIAL NOTE BEDSIDE REPORT RECEIVED BY BANANA EXPERT RN. PT RESTING IN BED. NO ACUTE DISTRESS NOTED. BREATHING EVEN AND UNLABORED. CALL LIGHT WITHIN REACH, BED IN LOW AND LOCKED POSITION WITH BED ALARM ON.
[2019-07-07 08:00] VITALS: BP_SYST 189
[2019-07-07] MEDS: ATORVASTATIN 20 MG TABLET PO SCH (08:47)
[2019-07-07] MEDS: ASPIRIN 81 MG TABLET(ECOTRIN) PO SCH (08:47)
[2019-07-07] MEDS: MULTIVITS,CA,MINERALS/IRON/FA 1 TABLET PO SCH (08:48)
[2019-07-07] MEDS: LABETALOL HCL 100 MG TABLET PO SCH ×2 (08:48→21:00)
[2019-07-07] MEDS: NIFEDIPINE 30 MG TAB.ER.24 PO SCH (09:00)
[2019-07-07] MEDS ORDERED: CLOPIDOGREL BISULFATE 75 MG TABLET PO SCH (09:00)
--- NOTE | 2019-07-07 10:00 | NUR ---
RN ROUNDS PT RESTING IN BED. NO ACUTE DISTRESS NOTED. BREATHING EVEN AND UNLABORED.
--- NOTE | 2019-07-07 10:08 | NUR ---
Nutrition Update John Scale 15 noted. Pt admitted for ARF and hyperkalemia. Diet: pureed, renal BMI: 15.4 kg/m2 RD to follow per nutrition care standards.
--- NOTE | 2019-07-07 11:07 | NUR ---
PAGED DR. HARE AWAITING RETURN CALL.
--- NOTE | 2019-07-07 11:55 | NUR ---
SPOKE W/ DR. HARE SPOKE WITH MD AT NURSES STATION. INFORMED MD OF K 5.6, AND BP 195/78. NO NEW ORDERS GIVEN.
[2019-07-07] MEDS: SODIUM POLYSTYRENE SULFONATE 15 GM/60 ML UDBTL PO ONE ×2 (12:00→12:52)
[2019-07-07] MEDS: MEGESTROL ACETATE 400 MG/10 ML UDC PO ONE ×3 (12:30→16:51)
--- NOTE | 2019-07-07 12:30 | NUR ---
RN ROUNDS PT LEFT HAND IV INFILTRATED. IV CATHETER INTACT, NO BLEEDING. RESTARTED NEW IV 24G ON LEFT HAND. IV PATENT. PT TOLERATED WELL.
[2019-07-07] MEDS: hydrALAZINE HCL 20 MG/ML VIAL IVP PRN (12:53)
[2019-07-07 12:56] VITALS: BP_SYST 195
--- NOTE | 2019-07-07 13:20 | NUR ---
DIALYSIS PT RECEIVING DIALYSIS.
--- NOTE | 2019-07-07 14:30 | NUR ---
RN ROUND PT ON DIALYSIS, TOLERATING WELL. DENIES ANY N/V/D.
[2019-07-07] MEDS ORDERED: HEPARIN SODIUM,PORCINE 5000 UNITS/ML VIAL IV SCH ×2 (16:45)
--- NOTE | 2019-07-07 16:48 | NUR ---
DONE W/ DIALYSIS PT TOLERATED WELL, DENIES ANY N/V.
[2019-07-07 18:18] VITALS: BP_SYST 154
--- NOTE | 2019-07-07 18:19 | NUR ---
RN ROUNDS PT AWAKE. HIGH FOWLERS EATING DINNER. DAUGHTER SHANIA AT BEDSIDE. DENIES ANY N/V.
--- NOTE | 2019-07-07 19:03 | NUR ---
CLOSING NOTE PT RESTING IN BED. NO ACUTE DISTRESS NOTED. BREATHING EVEN AND UNLABORED. CALL LIGHT WITHIN REACH, BED IN LOW AND LOCKED POSITION WITH BED ALARM ON. Addendum: 07/07/19 at 1953 by Chiquita Francisco RN PT CARE ENDORSED TO JOURNAL ENTRY AUDIT CLERK RN.
--- NOTE | 2019-07-07 19:42 | NUR ---
Initial note: Received report from dayshift RN. Patient is resting in bed, no acute distress noted. Even and unlabored breathing on room air. IV sites to left hand and right forearm are patent and benign, saline locked. Call light with patient. Safety and fall precautions in place. Will continue to monitor.
--- NOTE | 2019-07-07 21:15 | NUR ---
Consent: Consent signed by patient's daughter Leelee Garcia for right ultrasound-guided thoracentesis ordered by Dr. Slaughter for tomorrow morning.
--- NOTE | 2019-07-07 22:53 | NUR ---
Rounds: Patient is asleep, no acute distress. Even and unlabored breathing on room air. IV site is patent and benign. Even and unlabored breathing, tolerates room air. Call light with patient. Will continue to monitor.
[2019-07-08] MEDS: hydrALAZINE HCL 20 MG/ML VIAL IVP PRN ×2 (00:13→15:12)
[2019-07-08] MEDS: cefTRIAXone 1 GM in D5W 50 ML IV SCH ×2 (00:13→23:58)
--- NOTE | 2019-07-08 01:12 | NUR ---
Elevated BP: Made aware by SALOMON Lyon regarding patient's midnight BP of 194/92. Appresoline 10 MG IVP was administered as indicated. BP reassessed at this time is 156/88. Call light with patient. Will continue to monitor.
[2019-07-08 02:00] VITALS: BP_SYST 194
--- NOTE | 2019-07-08 07:36 | NUR ---
CONSENT SPOKE WITH DAUGHTER AMARJIT JAUREGUI FOR NAINA (SISTER) TO GIVE CONSENT FOR PROCEDURE.
--- NOTE | 2019-07-08 07:46 | NUR ---
INITIAL NOTE BEDSIDE REPORT RECEIVED BY PARTNER CCO RN. PT RESTING IN BED. NO ACUTE DISTRESS NOTED. BREATHING EVEN AND UNLABORED. IV SALINE LOCK. CALL LIGHT WITHIN REACH, BED IN LOW AND LOCKED POSITION WITH BED ALARM ON.
[2019-07-08 08:00] VITALS: BP_SYST 187
--- NOTE | 2019-07-08 08:00 | NUR ---
US AT BEDSIDE REPOSITIONED PT FOR ULTRA SOUND. PT COOPERATIVE, TOLERATED WELL. REPOSITIONED BACK IN BED.
[2019-07-08 08:36] LABS: BASOPHILS % (AUTO) 0.7 % (0.0-2.0); EOSINOPHILS # (AUTO) 0.1 K/uL (0.0-0.4); EOSINOPHILS % (AUTO) 1.3 % (0.0-4.0); HEMATOCRIT 30.5 % (36-48); HEMOGLOBIN 10.3 g/dL (12.0-16.0); LYMPHOCYTES # (AUTO) 0.3 K/uL (1.0-5.5); LYMPHOCYTES % (AUTO) 6.6 % (20.5-51.5); MEAN CORPUSCULAR HEMOGLOBIN 32 pg (27-31); MEAN CORPUSCULAR HGB CONC 34 % (32-36); MEAN CORPUSCULAR VOLUME 94 fL (79.0-98.0); MONOCYTES # (AUTO) 0.5 K/uL (0.0-1.0); NEUTROPHILS # (AUTO) 3.9 K/uL (1.8-7.7); NEUTROPHILS % (AUTO) 80.4 % (40.0-70.0); PLATELET COUNT (AUTO) 118 K/uL (130-430); RED BLOOD CELL COUNT(AUTO) 3.26 MIL/uL (4.2-6.2); RED CELL DISTRIBUTION WIDTH 19.4 % (9.0-15.0); WHITE BLOOD COUNT (AUTO) 4.8 K/uL (4.8-10.8)
[2019-07-08 08:55] LABS: INR 1.2 (0.8-1.2); PROTHROMBIN TIME 11.6 SECS (9.5-12.5)
[2019-07-08 09:00] LABS: ALANINE AMINOTRANSFERASE 15 U/L (12-78); ALBUMIN 3.5 g/dL (3.4-4.8); ANION GAP 10 (5-15); ASPARTATE AMINOTRANSFERASE 20 U/L (10-37); CHLORIDE 97 mmol/L (98-107); CREATININE 3.24 mg/dL (0.55-1.30); GLUCOSE 109 mg/dL (70-99); LACTATE DEHYDROGENASE 172 U/L (81-234); POTASSIUM 3.9 mmol/L (3.5-5.1); SODIUM SERUM 133 mmol/L (136-145); TOTAL BILIRUBIN 0.9 mg/dL (0.0-1.0); UREA NITROGEN, BLOOD 36 mg/dL (8-21); VANCOMYCIN,RANDOM 7.3 ug/mL
[2019-07-08 09:15] LABS: CALCIUM 9.8 mg/dL (8.4-11.0)
--- NOTE | 2019-07-08 09:24 | NUR ---
THORACENTESIS DR. RAMIREZ AT BEDSIDE. THORACENTESIS BEING DONE. 1020CC DRAINED FROM RIGHT SIDE. PT TOLERATED WELL.
--- NOTE | 2019-07-08 10:00 | NUR ---
RN ROUNDS PT RESTING IN BED. FAMILY AT BEDSIDE. NO ACUTE DISTRESS NOTED. BREATHING EVEN AND UNLABORED.
--- NOTE | 2019-07-08 10:25 | NUR ---
Dietitian Recommendations * Recommend renal, pureed diet w/ Nepro TID. (1275 kcal and 54 gm of protein/day) * Encourage PO intake. LP,RD Please refer to Nutrition Assessment for details. Signed: 07/08/19 at 1026 by Iveth ESTRADA <Co-Signature Required> Co-Signed: 07/08/19 at [address] Addendum: 07/08/19 at 1026 by Iveth ESTRADA Amended: Links added.
[2019-07-08] MEDS: ASPIRIN 81 MG TABLET(ECOTRIN) PO SCH (10:55)
[2019-07-08] MEDS: LABETALOL HCL 100 MG TABLET PO SCH ×2 (10:56→21:45)
[2019-07-08] MEDS: ATORVASTATIN 20 MG TABLET PO SCH (10:56)
[2019-07-08] MEDS: MULTIVITS,CA,MINERALS/IRON/FA 1 TABLET PO SCH (10:57)
[2019-07-08] MEDS: MEGESTROL ACETATE 400 MG/10 ML UDC PO SCH (10:57)
[2019-07-08] MEDS: NIFEDIPINE 30 MG TAB.ER.24 PO SCH (10:57)
[2019-07-08 12:27] LABS: BF APPEARANCE UNSPUN SLIGHTLY HAZY (CLEAR); BODY FLUID COLOR YELLOW (LT YELLOW); BODY FLUID SOURCE/ TYPE PLEURAL; BODY FLUID TOTAL VOLUME 1100 mL; NEUTROPHIL, BODY FLUID 20 %; RBC, BODY FLUID 6.6 /uL; SOURCE/TYPE ,BODY FLUID PLEURAL; WBC, BODY FLUID 460 /uL
[2019-07-08 12:28] LABS: EOSINOPHIL, BODY FLUID 0 %; LYMPHOCYTES, BODY FLUID 38 %; MONOCYTES,BODY FLUID 42 %
--- NOTE | 2019-07-08 12:30 | NUR ---
RN ROUNDS PT RESTING IN BED, NO ACUTE DISTRESS NOTED. BREATHING EVEN AND UNLABORED. FAMILY AT BEDSIDE.
[2019-07-08 12:35] VITALS: BP_SYST 166
--- NOTE | 2019-07-08 14:30 | NUR ---
RN ROUNDS PT RESTING IN BED. DAUGHTER AT BEDSIDE. NO ACUTE DISTRESS NOTED. BREATHING EVEN AND UNLABORED.
[2019-07-08] MEDS ORDERED: VANCOMYCIN HCL 500 MG in NS 100 ML IV ONE (15:00)
[2019-07-08 15:14] VITALS: BP_SYST 195
[2019-07-08] MEDS ORDERED: CLOPIDOGREL BISULFATE 75 MG TABLET PO ONE (15:15)
[2019-07-08 15:29] LABS: BODY FLUID GLUCOSE 115 mg/dL; BODY FLUID TOTAL PROTEIN 3.8 g/dL
--- NOTE | 2019-07-08 16:30 | NUR ---
RN ROUNDS REPOSITIONED PT FOR COMFORT. DENIES ANY NAUSEA OR DISCOMFORT AT THIS TIME.
--- NOTE | 2019-07-08 17:28 | NUR ---
MD ROUNDS DR. HARE AT BEDSIDE EXAMINING PT. NEW ORDERS GIVEN, VERIFIED WITH READ BACK.
[2019-07-08 19:00] VITALS: BP_SYST 155
--- NOTE | 2019-07-08 19:15 | NUR ---
OPENING NOTE Bedside report received from dayshift nurse. Patient received sleeping. No s/s of acute distress noted. Breathing even and unlabored. HOB elevated. Call light with patient. Bed alarm is on. Bed is locked and at lowest position. Will continue to monitor.
--- NOTE | 2019-07-08 19:36 | NUR ---
CLOSING NOTE BEDSIDE REPORT GIVEN TO BIOFUELS PRODUCTION MANAGER RN. PT RESTING IN BED. NO ACUTE DISTRESS NOTED. BREATHING EVEN AND UNLABORED. SOFT WRIST RESTRAINTS IN PLACE. CALL LIGHT WITHIN REACH, BED IN LOW AND LOCKED POSITION WITH BED ALARM ON. PT CARE ENDORSED TO BIOFUELS PRODUCTION MANAGER RN. Addendum: 07/08/19 at 1950 by Chiquita Francisco RN DISREGARD, WRONG PT ENTRY.
--- NOTE | 2019-07-08 19:50 | NUR ---
CLOSING NOTE PT CARE ENDORSED TO MANAGER SHIFT RN. PT RESTING IN BED, NO ACUTE DISTRESS NOTED, BREATHING EVEN AND UNLABORED. IV SALINE LOCK. CALL LIGHT WITHIN REACH, BED IN LOW AND LOCKED POSITION WITH BED ALARM ON. PT CARE ENDORSED TO MANAGER SHIFT RN.
[2019-07-08 20:00] VITALS: BP_SYST 103
--- NOTE | 2019-07-08 21:00 | NUR ---
ROUNDS Patient being fed by CHILDREN'S COUNSELOR at this time. Patient tolerating well. No signs of discomfort noted. Chest rise and fall even bilaterally. All needs met. Will continue to monitor.
--- NOTE | 2019-07-08 23:00 | NUR ---
ROUNDS Patient sleeping at this time. No s/s of acute distress noted. Breathing even and unlabored. Call light with patient. Bed alarm on. Will continue to monitor.
--- NOTE | 2019-07-09 | NUR ---
HIGH BP RN made aware by PARTS COUNTERPERSON that BP is at 171/64. PRN medication to be administered. Patient shows no s/s of discomfort. Chest rise and fall even bilaterally. Will continue to monitor and reassess. Call light with patient. Bed alarm on.
[2019-07-09 00:47] VITALS: BP_SYST 171
--- NOTE | 2019-07-09 02:00 | NUR ---
ROUNDS Patient in bed sleeping at this time. No signs of discomfort noted. Chest rise and fall even bilaterally. Call light with patient. Bed alarm on. Will continue to monitor.
--- NOTE | 2019-07-09 03:15 | NUR ---
HD CONCLUDED HD done able to removed a total of 2L, patient well tolerated. Alert, awake and verbally responsive. Eating lunch assisted by daughter. Denies any pain or discomfort. Attended to needs and anticipated. HD site intact, no bleeding noted. Attended to needs and anticipated. Call light within the reach. Addendum: 07/09/19 at 1553 by Fannie Hays RN disregard, wrong time
[2019-07-09 04:00] VITALS: BP_SYST 186
--- NOTE | 2019-07-09 04:00 | NUR ---
HIGH BP/PULL OUT IV BP taken , BP at 186/63. PRN medication to administered. Patient sleeping, No signs of respiratory distress. No SOB. IV accidentally pulled out, catheter fully intact. No active bleeding.
[2019-07-09] MEDS: hydrALAZINE HCL 20 MG/ML VIAL IVP PRN ×3 (04:29→10:11)
[2019-07-09 06:32] LABS: BASOPHILS % (AUTO) 0.4 % (0.0-2.0); EOSINOPHILS # (AUTO) 0.1 K/uL (0.0-0.4); EOSINOPHILS % (AUTO) 1.2 % (0.0-4.0); HEMATOCRIT 30.7 % (36-48); HEMOGLOBIN 10.4 g/dL (12.0-16.0); LYMPHOCYTES # (AUTO) 0.6 K/uL (1.0-5.5); LYMPHOCYTES % (AUTO) 9.5 % (20.5-51.5); MEAN CORPUSCULAR HEMOGLOBIN 32 pg (27-31); MEAN CORPUSCULAR HGB CONC 34 % (32-36); MEAN CORPUSCULAR VOLUME 93 fL (79.0-98.0); MONOCYTES # (AUTO) 0.5 K/uL (0.0-1.0); MONOCYTES % (AUTO) 8.4 % (1.7-9.3); NEUTROPHILS # (AUTO) 4.9 K/uL (1.8-7.7); NEUTROPHILS % (AUTO) 80.5 % (40.0-70.0); PLATELET COUNT (AUTO) 137 K/uL (130-430); RED BLOOD CELL COUNT(AUTO) 3.29 MIL/uL (4.2-6.2); RED CELL DISTRIBUTION WIDTH 19.7 % (9.0-15.0); WHITE BLOOD COUNT (AUTO) 6.1 K/uL (4.8-10.8)
--- NOTE | 2019-07-09 06:41 | NUR ---
CLOSING NOTES Patient in bed sleeping at this time. No s/s of acute distress noted. Breathing even and unlabored. IV site patent, no signs of infiltration or infection noted. HOB raised. All needs met throughout shift. Fall and safety precautions maintained throughout shift. Will continue to monitor until patient care is endorsed to oncoming dayshift nurse.
[2019-07-09 07:04] LABS: ANION GAP 11 (5-15); CALCIUM 10.1 mg/dL (8.4-11.0); CHLORIDE 97 mmol/L (98-107); CREATININE 4.34 mg/dL (0.55-1.30); GLUCOSE 110 mg/dL (70-99); POTASSIUM 4.8 mmol/L (3.5-5.1); SODIUM SERUM 135 mmol/L (136-145); UREA NITROGEN, BLOOD 56 mg/dL (8-21)
--- NOTE | 2019-07-09 07:34 | NUR ---
OPENING NOTE: MORNING REPORT TAKEN AT BEDSIDE WITH NIGHT NURSE. PT RESTING IN BED WITH NO SIGNS OF RESP DISTRESS. CALL LIGHT IS IN REACH. BED ALARM IS ON AND BED IN LOWEST POSITION WITH SIDE RAILS UP. WILL CONTINUE TO MONITOR.
[2019-07-09 08:02] VITALS: BP_SYST 214
[2019-07-09] MEDS: MEGESTROL ACETATE 400 MG/10 ML UDC PO SCH (08:28)
[2019-07-09] MEDS: MULTIVITS,CA,MINERALS/IRON/FA 1 TABLET PO SCH (08:28)
[2019-07-09] MEDS: ASPIRIN 81 MG TABLET(ECOTRIN) PO SCH (08:28)
[2019-07-09] MEDS: CLOPIDOGREL BISULFATE 75 MG TABLET PO SCH (08:29)
[2019-07-09] MEDS: LABETALOL HCL 100 MG TABLET PO SCH ×2 (08:29→20:00)
[2019-07-09] MEDS: NIFEDIPINE 30 MG TAB.ER.24 PO SCH (08:29)
[2019-07-09] MEDS: ATORVASTATIN 20 MG TABLET PO SCH (08:30)
--- NOTE | 2019-07-09 10:16 | NUR ---
Pt's Bp elevated. Gave morning meds. BP still elevated at 190/69. PRN given. Pt has no signs of resp distress. Will continue to monitor.
--- NOTE | 2019-07-09 10:55 | NUR ---
PT'S BP AFTER PRN IS 168/68. DR. DENTON AT BEDSIDE. DR AWARE OF BP. STATES PT JUST NEEDS DIALYSIS. NO FURTHER ORDERS.
--- NOTE | 2019-07-09 11:29 | NUR ---
ENDORSED CARE TO LUL SNYDER.
--- NOTE | 2019-07-09 11:30 | NUR ---
SBAR report received from previous nurse Patient received lying comfortably in her bed with respiration even and unlabored. lethargic but arousable with verbal and tactile stimuli, verbally responsive. Denies any pain or discomfort at this time. Saline lock is in place and intact. Fall precaution observed. Call light within the reach. Will continue to monitor.
--- NOTE | 2019-07-09 12:00 | NUR ---
HD started Patient stated on HD, HD nurse at bedside. Patient remain to be lethargic but easily awaken, no moaning or grimacing noted. Will continue to monitor.
--- NOTE | 2019-07-09 14:40 | NUR ---
P.T. NOTES RECEIVED P.T. EVAL ORDER; HOLD P.T. 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
--- NOTE | 2019-07-09 14:45 | NUR ---
RN ROUNDS Patient still om going HD, tolerating well. Denies any pain or discomfort at this time. Call light within the reach. Will continue to monitor.
--- NOTE | 2019-07-09 15:15 | NUR ---
HD CONCLUDED HD done able to removed a total of 2L, patient well tolerated. Alert, awake and verbally responsive. Eating lunch assisted by daughter. Denies any pain or discomfort. Attended to needs and anticipated. HD site intact, no bleeding noted. Attended to needs and anticipated. Call light within the reach.
[2019-07-09 15:26] VITALS: BP_SYST 150
[2019-07-09 16:05] VITALS: BP_SYST 125
--- NOTE | 2019-07-09 17:30 | NUR ---
RN ROUNDS Patient resting well, denies any pain or discomfort at this time. No moaning or grimacing noted. No changes in LOC. Attended to needs and anticipated. Call light within the reach.
--- NOTE | 2019-07-09 18:42 | NUR ---
Closing Notes Patient remain to be alert, awake and verbally responsive. Denies any pain or discomfort at this time. Respiration even and unlabored. IV line remain to be in place and intact. Call light within the reach. Will endorse to the next shift.
--- NOTE | 2019-07-09 19:15 | NUR ---
OPENING NOTES Bedside report received from dayshift nurse. Patient received lying in bed, no s/s of acute distress noted. Breathing even and unlabored. IV site patent, no signs of infiltration or infection noted. HOB raised. Skin warm and dry to touch. Call light with patient. Bed alarm on. Bed is locked and at lowest position. Will continue to monitor.
[2019-07-09 20:00] VITALS: BP_SYST 150
--- NOTE | 2019-07-09 21:00 | NUR ---
BEDPAN/PERICARE Patient requested for bed welsh. Patient had bowel movement, brown soft formed noted. Pericare done at this time. Patient tolerated well. All needs met. Call light with patient. Bed alarm on. Will continue to monitor.
--- NOTE | 2019-07-09 23:00 | NUR ---
ROUNDS Patient sleeping at this time. No signs of discomfort noted. Chest rise and fall even bilaterally. Call light with patient. Bed alarm on. Will continue to monitor.
[2019-07-10] VITALS: BP_SYST 168
--- NOTE | 2019-07-10 01:00 | NUR ---
HIGH BP Patient's BP at 168/61. PRN medication administered at this time. Will continue to monitor and reassess.
[2019-07-10] MEDS: cefTRIAXone 1 GM in D5W 50 ML IV SCH (01:17)
[2019-07-10] MEDS: hydrALAZINE HCL 20 MG/ML VIAL IVP PRN ×2 (01:18→05:19)
--- NOTE | 2019-07-10 03:00 | NUR ---
ROUNDS Patient sleeping comfortably at this time. No s/s of acute distress noted. Breathing even and unlabored. Call light with patient. Bed alarm on. Will continue to monitor.
--- NOTE | 2019-07-10 05:00 | NUR ---
ROUNDS/HIGH BP Patient's blood pressure is 184/70. Will administer PRN medication. Patient denies pain. No SOB. Breathing even and unlabored. Will continue to monitor and reassess.
--- NOTE | 2019-07-10 06:42 | NUR ---
CLOSING NOTES Patient in bed sleeping at this time. No s/s of acute distress noted. Breathing even and unlabored. IV site patent, no signs of infiltration or infection noted. HOB slightly raised. All needs met throughout shift. Fall and safety precautions maintained throughout shift. Will continue to monitor until patient care is endorsed to oncoming dayshift nurse.
[2019-07-10 08:00] VITALS: BP_SYST 180
[2019-07-10 08:20] LABS: BASOPHILS % (AUTO) 0.5 % (0.0-2.0); EOSINOPHILS # (AUTO) 0.2 K/uL (0.0-0.4); EOSINOPHILS % (AUTO) 3.2 % (0.0-4.0); HEMOGLOBIN 11.1 g/dL (12.0-16.0); LYMPHOCYTES # (AUTO) 0.7 K/uL (1.0-5.5); LYMPHOCYTES % (AUTO) 11.6 % (20.5-51.5); MEAN CORPUSCULAR HEMOGLOBIN 31 pg (27-31); MEAN CORPUSCULAR HGB CONC 34 % (32-36); MEAN CORPUSCULAR VOLUME 93 fL (79.0-98.0); MONOCYTES # (AUTO) 0.6 K/uL (0.0-1.0); MONOCYTES % (AUTO) 9.6 % (1.7-9.3); NEUTROPHILS # (AUTO) 4.4 K/uL (1.8-7.7); NEUTROPHILS % (AUTO) 75.1 % (40.0-70.0); PLATELET COUNT (AUTO) 141 K/uL (130-430); RED BLOOD CELL COUNT(AUTO) 3.53 MIL/uL (4.2-6.2); RED CELL DISTRIBUTION WIDTH 19.8 % (9.0-15.0); WHITE BLOOD COUNT (AUTO) 5.9 K/uL (4.8-10.8)
[2019-07-10] MEDS: MEGESTROL ACETATE 400 MG/10 ML UDC PO SCH (08:34)
[2019-07-10] MEDS: ATORVASTATIN 20 MG TABLET PO SCH (08:34)
[2019-07-10] MEDS: ASPIRIN 81 MG TABLET(ECOTRIN) PO SCH (08:34)
[2019-07-10] MEDS: CLOPIDOGREL BISULFATE 75 MG TABLET PO SCH (08:34)
[2019-07-10] MEDS: MULTIVITS,CA,MINERALS/IRON/FA 1 TABLET PO SCH (08:35)
[2019-07-10] MEDS: NIFEDIPINE 30 MG TAB.ER.24 PO SCH (08:35)
[2019-07-10] MEDS: LABETALOL HCL 100 MG TABLET PO SCH ×2 (08:36→22:15)
[2019-07-10] MEDS: ACETAMINOPHEN 325 MG TABLET PO PRN (08:38)
[2019-07-10 08:43] LABS: ALANINE AMINOTRANSFERASE 11 U/L (12-78); ALBUMIN 3.6 g/dL (3.4-4.8); ANION GAP 8 (5-15); ASPARTATE AMINOTRANSFERASE 14 U/L (10-37); CALCIUM 10.5 mg/dL (8.4-11.0); CHLORIDE 99 mmol/L (98-107); CREATININE 3.14 mg/dL (0.55-1.30); GLUCOSE 106 mg/dL (70-99); POTASSIUM 4.3 mmol/L (3.5-5.1); SODIUM SERUM 136 mmol/L (136-145); TOTAL BILIRUBIN 0.7 mg/dL (0.0-1.0); UREA NITROGEN, BLOOD 39 mg/dL (8-21)
[2019-07-10 11:13] VITALS: BP_SYST 180
[2019-07-10 11:17] VITALS: BP_SYST 102
[2019-07-10 17:25] VITALS: BP_SYST 159
[2019-07-11] MEDS: hydrALAZINE HCL 20 MG/ML VIAL IVP PRN ×3 (00:18→11:30)
[2019-07-11] MEDS: cefTRIAXone 1 GM in D5W 50 ML IV SCH ×2 (00:19→23:39)
[2019-07-11 01:38] VITALS: BP_SYST 216
--- NOTE | 2019-07-11 07:30 | NUR ---
INITIAL NOTE RECEIVED PT IN BED, NO S/S OF DISTRESS OR SOB NOTED, PT HAS NO C/O PAIN AT THIS TIME, PT IN STABLE CONDITION, PT AAOX1, VERBAL, CONFUSED, PROVIDED PT WITH REALITY ORIENTATION. IV CATHETER PATENT, SALINE LOCK, NO SIGNS OF INFECTION OR INFILTRATION NOTED. PT HAS BILATERAL SCD'S IN PLACE. BED AT LOWEST POSITION, CALL LIGHT WITHIN REACH, WILL CONTINUE TO MONITOR PT FOR ANY CHANGES, FALL AND ASPIRATION PRECAUTIONS IN PLACE. SAFETY PRECAUTIONS IN PLACE.
[2019-07-11 08:30] VITALS: BP_SYST 197
[2019-07-11] MEDS: MEGESTROL ACETATE 400 MG/10 ML UDC PO SCH (08:42)
[2019-07-11] MEDS: MULTIVITS,CA,MINERALS/IRON/FA 1 TABLET PO SCH (08:42)
[2019-07-11] MEDS: CLOPIDOGREL BISULFATE 75 MG TABLET PO SCH (08:42)
[2019-07-11] MEDS: ASPIRIN 81 MG TABLET(ECOTRIN) PO SCH (08:42)
[2019-07-11] MEDS: ATORVASTATIN 20 MG TABLET PO SCH (08:43)
[2019-07-11] MEDS: NIFEDIPINE 30 MG TAB.ER.24 PO SCH (08:44)
[2019-07-11] MEDS: LABETALOL HCL 100 MG TABLET PO SCH ×2 (08:45→21:24)
--- NOTE | 2019-07-11 09:00 | NUR ---
MD CALL DR JAYSON COLEMAN, AWAITING CALL BACK TO NOTIFY OF RESULTS OF CHEST X RAY.
--- NOTE | 2019-07-11 09:27 | NUR ---
MD CALL SPOKE WITH DR HARE MADE HIM AWARE OF RESULTS OF CHEST X RAY AND 10% PNUEMOTHORAX. NO NEW ORDERS GIVEN.
--- NOTE | 2019-07-11 09:28 | NUR ---
MD ROUNDS DR JAYSON CORTES, AWARE OF RESULTS OF CHEST X RAY.
--- NOTE | 2019-07-11 10:30 | NUR ---
ROUNDS PT IN BED, NO S/S OF DISTRESS OR SOB NOTED, PT HAS NO C/O PAIN AT THIS TIME, PT IN STABLE CONDITION, PT RESTING COMFORTABLY, WILL CONTINUE TO MONITOR PT FOR ANY CHANGES.
[2019-07-11 11:27] VITALS: BP_SYST 192
[2019-07-11 12:30] VITALS: BP_SYST 164
--- NOTE | 2019-07-11 12:30 | NUR ---
MEDICATION REASSESSMENT PATIENT'S BLOOD PRESSURE IS NOW 164/62, PULSE 72, PT IN STABLE CONDITION, NO C/O OF PAIN OR HEADACHE OR DIZZINESS, ASYMPTOMATIC. WILL CONTINUE TO MONITOR PT FOR ANY CHANGES, MEDICATION FOR BLOOD PRESSURE EFFECTIVE.
--- NOTE | 2019-07-11 13:26 | NUR ---
Nutrition F/U RD reviewed pt's current EMR including diet Hx, physician notes, nursing notes, pertinent labs/meds/procedures, care trends and care activity. Current Diet Order: Pureed Renal standard diet w/ Nepro TID x 3 days Subjective information: Pt seen in bed, awake but non-verbal. Bottle of Nepro at bedside, 30% consumed. Pt remains w/ poor PO intake per EMR (48% average of 2 days). Bed scale weight 91# (07/11). Current diet remains appropriate. Current PO intake: POOR 48% average of 2 days NEW Estimated Energy Expenditure (kcals/day) 9907-2102 kcal/day (30-35 kcal/kg IBW for weight gain promotion and HD status) Estimated Protein Required (g/day) 62-73 gm/day (1.2-1.4 gm/kg IBW for ESRD/HD, wt promotion) Estimated Fluid Required (l/day) Defer to MD for ESRD Problem/Etiology/Signs/Symptoms Suboptimal PO intake related to probable lack of appetite and altered level state as evidenced by FTT, BMI of 15.4 kg/m2, and documented report of pt eating poorly for more than one week. (*ongoing) Expected Outcomes/Goals - Monitor appetite and PO intake w/ goals of pt meeting greater than 50% of estimated nutritional needs, labs trending WNL, and skin integrity/wt maintenance. Dietitian Recommendations * Recommend continuing renal, pureed diet w/ Nepro TID. (1275 kcal and 54 gm of protein/day) * Encourage PO intake. * Continue Megace. Follow Up High Risk: F/U in 2-3days
--- NOTE | 2019-07-11 13:31 | NUR ---
Dietitian Recommendations * Recommend continuing renal, pureed diet w/ Nepro TID. (1275 kcal and 54 gm of protein/day) * Encourage PO intake. * Continue Megace. Please see nutrition F/U note. HARLEY, RD
[2019-07-11] MEDS: VANCOMYCIN HCL 500 MG in NS 100 ML IV SCH (14:52)
[2019-07-11] MEDS ORDERED: VANCOMYCIN HCL 500 MG in NS 100 ML IV SCH (15:00)
[2019-07-11 15:22] VITALS: BP_SYST 157
--- NOTE | 2019-07-11 16:30 | NUR ---
DC Planning: Discussed with pt and candido/Tess for dcp to snf for iv abx and disease management. The pt wants to go home with HH but both wanted to talk more and let me know when reach their decision. -- CM will f/u. PT eval is pending today dt pt is on HD.
--- NOTE | 2019-07-11 16:55 | NUR ---
ROUNDS PT IN BED, NO S/S OF DISTRESS OR SOB NOTED, PT HAS NO C/O PAIN AT THIS TIME, PT IN STABLE CONDITION, PT RESTING COMFORTABLY, WILL CONTINUE TO MONITOR PT FOR ANY CHANGES. FAMILY AT BEDSIDE.
--- NOTE | 2019-07-11 18:28 | NUR ---
CLOSING NOTE PT IN BED, NO S/S OF DISTRESS OR SOB NOTED, PT HAS NO C/O PAIN AT THIS TIME, PT IN STABLE CONDITION,N IV CATHETER PATENT, SALINE LOCK, NO SIGNS OF INFECTION OR INFILTRATION NOTED. PT HAS BILATERAL SCD'S IN PLACE. BED AT LOWEST POSITION, CALL LIGHT WITHIN REACH, WILL ENDORSE CARE OF PT TO INCOMING NURSE, FALL AND ASPIRATION PRECAUTIONS IN PLACE. SAFETY PRECAUTIONS IN PLACE.
[2019-07-11 19:46] VITALS: BP_SYST 159
--- NOTE | 2019-07-11 19:46 | NUR ---
Opening notes Pt asleep, easily arousable. Oriented x1. VSS, no s/s distress noted. R. chest permacath, dressing C/D/I for HD tomorrow. Call light within reach. Bed low, locked, siderails up, bed alarm on. Will continue to monitor.
--- NOTE | 2019-07-11 21:28 | NUR ---
Rounds/med pass Pt awake, no s/s distress noted. Pt able to tolerate PO meds 2 at a time with sips of water, HOB elevated. Call light remains within reach. Bed low, locked, siderails up, bed alarm on. To monitor.
--- NOTE | 2019-07-11 23:35 | NUR ---
Rounds Pt asleep, easily arousable, no s/s distress noted. IV antibiotic administered as ordered. Call light within reach. Bed low, locked, siderails up, bed alarm on. To monitor.
--- NOTE | 2019-07-12 01:30 | NUR ---
Rounds Pt asleep, no s/s distress noted. Call light within reach. Bed low, locked, siderails up, bed alarm on. To monitor.
[2019-07-12 02:09] VITALS: BP_SYST 164
--- NOTE | 2019-07-12 03:10 | NUR ---
Rounds Pt asleep, respirations even and unlabored. Call light within reach. Bed low, locked, siderails up, bed alarm on. To monitor.
--- NOTE | 2019-07-12 06:10 | NUR ---
Closing notes Pt asleep, no s/s distress noted. RFA 22G saline lock, clear and patent. R. chest rosa m cath dressing C/D/I. For HD today. Call light within reach. Bed low, locked, siderails upx3, bed alarm on. All needs met throughout the night. To endorse to AM nurse.
[2019-07-12 06:54] LABS: BASOPHILS % (AUTO) 0.4 % (0.0-2.0); EOSINOPHILS # (AUTO) 0.3 K/uL (0.0-0.4); EOSINOPHILS % (AUTO) 4.3 % (0.0-4.0); HEMATOCRIT 30.1 % (36-48); HEMOGLOBIN 10.2 g/dL (12.0-16.0); LYMPHOCYTES # (AUTO) 0.7 K/uL (1.0-5.5); LYMPHOCYTES % (AUTO) 10.9 % (20.5-51.5); MEAN CORPUSCULAR HEMOGLOBIN 32 pg (27-31); MEAN CORPUSCULAR HGB CONC 34 % (32-36); MEAN CORPUSCULAR VOLUME 94 fL (79.0-98.0); MONOCYTES # (AUTO) 0.4 K/uL (0.0-1.0); MONOCYTES % (AUTO) 7.5 % (1.7-9.3); NEUTROPHILS # (AUTO) 4.6 K/uL (1.8-7.7); NEUTROPHILS % (AUTO) 76.9 % (40.0-70.0); PLATELET COUNT (AUTO) 126 K/uL (130-430); RED BLOOD CELL COUNT(AUTO) 3.21 MIL/uL (4.2-6.2); RED CELL DISTRIBUTION WIDTH 19.1 % (9.0-15.0)
[2019-07-12 07:02] LABS: ANION GAP 12 (5-15); CHLORIDE 97 mmol/L (98-107); CREATININE 6.07 mg/dL (0.55-1.30); GLUCOSE 103 mg/dL (70-99); POTASSIUM 5.7 mmol/L (3.5-5.1); SODIUM SERUM 135 mmol/L (136-145); UREA NITROGEN, BLOOD 96 mg/dL (8-21)
[2019-07-12 07:54] VITALS: BP_SYST 153
[2019-07-12] MEDS: LABETALOL HCL 100 MG TABLET PO SCH ×2 (08:13→20:29)
[2019-07-12] MEDS: NIFEDIPINE 30 MG TAB.ER.24 PO SCH (08:13)
[2019-07-12] MEDS: MEGESTROL ACETATE 400 MG/10 ML UDC PO SCH (08:19)
[2019-07-12] MEDS: ASPIRIN 81 MG TABLET(ECOTRIN) PO SCH (08:19)
[2019-07-12] MEDS: ATORVASTATIN 20 MG TABLET PO SCH (08:19)
[2019-07-12] MEDS: MULTIVITS,CA,MINERALS/IRON/FA 1 TABLET PO SCH (08:19)
[2019-07-12] MEDS: CLOPIDOGREL BISULFATE 75 MG TABLET PO SCH (08:19)
--- NOTE | 2019-07-12 10:51 | NUR ---
MD CALL DR EL COLEMAN, AWAITING CALL BACK FOR BLOOD PRESSURE OF 183/84, 68, PT ASYMPTOMATIC, NO C/O HEADACHE OR DIZZINESS.
--- NOTE | 2019-07-12 11:59 | NUR ---
DC Planning: Phoned dr. Myers: Per dtr request pt to go home with HH, pt's does not want snf transfer. DC Planning: pending HD today with elevated Bun and CR 96/6.07 , K 5.7. Lipase 804.
[2019-07-12 12:41] VITALS: BP_SYST 183
--- NOTE | 2019-07-12 13:21 | NUR ---
MD ROUNDS DR EL CORTES, MADE AWARE OF PATIENT'S BLOOD PRESSURE AND PT AWAITING FOR HEMODIALYSIS, PER MD TO CONTINUE TO MONITOR PT AND HER BLOOD PRESSURE, PT CONTINUES TO BE ASYMPTOMATIC.
--- NOTE | 2019-07-12 13:57 | NUR ---
Discharge Planning: DCP faxed pt referral to [facility] (f [phone] p [phone]) DCP to follow up
--- NOTE | 2019-07-12 16:02 | NUR ---
CONSULT SURGERY PNEUMO ARLET JIMENEZ [phone] S/W [facility]
--- NOTE | 2019-07-12 16:24 | NUR ---
MD SAEZ SPOKE WITH DR REYNOLDS IN REGARDS TO THE CONSULT, PER MD HE WANTS A FACE SHEET FAXED TO HIS OFFICE BUT DOES NOT WANT TO SEE THE PT IF DR TYLER IS MANAGING THE PNEUMOTHORAX, DR HARE PAGED, AWAITING CALL BACK TO NOTIFY HIM.
--- NOTE | 2019-07-12 16:25 | NUR ---
ROUNDS PT IN BED, NO S/S OF DISTRESS OR SOB NOTED, PT HAS NO C/O PAIN AT THIS TIME, PT IN STABLE CONDITION, PT WATCHING TV, WILL CONTINUE TO MONITOR PT FOR ANY CHANGES.
--- NOTE | 2019-07-12 16:32 | NUR ---
MD CALL DR TYLER CALLED AND SPOKE WITH HER IN REGARDS TO CONSULT FOR DR REYNOLDS, PER DR TYLER SHE WANTS TO WAIT FOR THE RESULTS OF THE CHEST X RAY FOR TOMORROW. DR REYNOLDS PAGED AND WAITING CALL BACK TO NOTIFY HIM.
[2019-07-12 16:40] VITALS: BP_SYST 180
--- NOTE | 2019-07-12 18:31 | NUR ---
CLOSING NOTE PT IN BED, NO S/S OF DISTRESS OR SOB NOTED, PT HAS NO C/O PAIN AT THIS TIME, PT IN STABLE CONDITION, PT AAOX1, VERBAL, CONFUSED, PROVIDED PT WITH REALITY ORIENTATION. IV CATHETER PATENT, SALINE LOCK, NO SIGNS OF INFECTION OR INFILTRATION NOTED. PT HAS BILATERAL SCD'S IN PLACE. BED AT LOWEST POSITION, CALL LIGHT WITHIN REACH, WILL ENDORSE CARE OF PT TO INCOMING NURSE, FALL AND ASPIRATION PRECAUTIONS IN PLACE. SAFETY PRECAUTIONS IN PLACE. PT CURRENTLY HAVING DIALYSIS.
--- NOTE | 2019-07-12 19:30 | NUR ---
Opening notes Pt resting in bed having HD at this time. No s/s distress noted. Bed low, locked, siderails up x3. Call light within reach. To monitor.
[2019-07-12 20:20] VITALS: BP_SYST 188
[2019-07-12] MEDS: hydrALAZINE HCL 20 MG/ML VIAL IVP PRN (20:26)
--- NOTE | 2019-07-12 20:30 | NUR ---
HD completed Per HD nurse 2 liters output BP 202/77. CRN made aware. BP meds to be administered. PT denies any pain or headache. Call light within reach. Safety measures in place. To monitor.
--- NOTE | 2019-07-12 23:00 | NUR ---
IV RE-START IV R. forearm leaking. DC'd IV with catheter tip intact. Re-started new IV L.UA 22G good blood return x 2 attempts. Pt tolerated well. To monitor.
[2019-07-12] MEDS: cefTRIAXone 1 GM in D5W 50 ML IV SCH (23:51)
[2019-07-13] MEDS: hydrALAZINE HCL 20 MG/ML VIAL IVP PRN ×2 (00:25→07:30)
--- NOTE | 2019-07-13 00:25 | NUR ---
BP med Pt asleep, easily arousable. BP 198/83 HR 66. Pt denies any pain or headache. Apresoline 10mg IVP given as needed on L. AC 22G no s/s infiltration noted. Call light within reach. To monitor.
[2019-07-13 01:36] VITALS: BP_SYST 198
--- NOTE | 2019-07-13 04:12 | NUR ---
Rounds Pt asleep, easily arousable. No s/s respiratory distress, O2 sat 99% on room air. BP 184/101 HR 67. Pt denies any headache or pain. IV saline lock L. AC 22G clear and patent. Call light within reach. To monitor.
--- NOTE | 2019-07-13 06:20 | NUR ---
Chest Xray at bedside.
--- NOTE | 2019-07-13 06:40 | NUR ---
Closing notes Pt asleep, easily arousable. No s/s resp distress noted. IV saline lock L. AC 22 clear, patent. R. IJ permacath dressing C/D/I. Taiwo SCDs in place. Call light within reach. Bed low, locked, siderails up x3, bed alarm on. To endorse to AM nurse.
--- NOTE | 2019-07-13 07:15 | NUR ---
received report at the bedside. patient alert awake x 1-2. but mostly refused not to talk and confusion at times. breathing even and unlabored. no oxygen. abdomen soft and non distended. bed low position, alarmed and locked. call lights within reach. has iv access on the left ac #22. saline lock.
[2019-07-13 07:21] LABS: BASOPHILS % (AUTO) 0.3 % (0.0-2.0); EOSINOPHILS # (AUTO) 0.2 K/uL (0.0-0.4); EOSINOPHILS % (AUTO) 2.1 % (0.0-4.0); HEMATOCRIT 33.2 % (36-48); HEMOGLOBIN 11.1 g/dL (12.0-16.0); LYMPHOCYTES # (AUTO) 0.5 K/uL (1.0-5.5); LYMPHOCYTES % (AUTO) 6.3 % (20.5-51.5); MEAN CORPUSCULAR HEMOGLOBIN 31 pg (27-31); MEAN CORPUSCULAR HGB CONC 34 % (32-36); MEAN CORPUSCULAR VOLUME 94 fL (79.0-98.0); MONOCYTES # (AUTO) 0.7 K/uL (0.0-1.0); MONOCYTES % (AUTO) 8.6 % (1.7-9.3); NEUTROPHILS # (AUTO) 6.5 K/uL (1.8-7.7); NEUTROPHILS % (AUTO) 82.7 % (40.0-70.0); PLATELET COUNT (AUTO) 118 K/uL (130-430); RED BLOOD CELL COUNT(AUTO) 3.54 MIL/uL (4.2-6.2); RED CELL DISTRIBUTION WIDTH 19.5 % (9.0-15.0); WHITE BLOOD COUNT (AUTO) 7.9 K/uL (4.8-10.8)
[2019-07-13 07:39] LABS: ANION GAP 10 (5-15); CHLORIDE 100 mmol/L (98-107); CREATININE 3.35 mg/dL (0.55-1.30); GLUCOSE 108 mg/dL (70-99); POTASSIUM 4.6 mmol/L (3.5-5.1); SODIUM SERUM 138 mmol/L (136-145); UREA NITROGEN, BLOOD 46 mg/dL (8-21)
[2019-07-13] MEDS: MEGESTROL ACETATE 400 MG/10 ML UDC PO SCH (08:20)
[2019-07-13] MEDS: ASPIRIN 81 MG TABLET(ECOTRIN) PO SCH (08:21)
[2019-07-13] MEDS: MULTIVITS,CA,MINERALS/IRON/FA 1 TABLET PO SCH (08:21)
[2019-07-13] MEDS: NIFEDIPINE 30 MG TAB.ER.24 PO SCH (08:21)
[2019-07-13] MEDS: ATORVASTATIN 20 MG TABLET PO SCH (08:21)
[2019-07-13] MEDS: CLOPIDOGREL BISULFATE 75 MG TABLET PO SCH (08:22)
[2019-07-13] MEDS: LABETALOL HCL 100 MG TABLET PO SCH ×2 (08:32→22:21)
[2019-07-13 08:39] VITALS: BP_SYST 150
--- NOTE | 2019-07-13 09:00 | NUR ---
due medication given by crushing meds with apple sauce.
[2019-07-13 09:32] VITALS: BP_SYST 150
--- NOTE | 2019-07-13 10:00 | NUR ---
family at the bedside.
[2019-07-13] MEDS: ACETAMINOPHEN 325 MG TABLET PO PRN (10:05)
--- NOTE | 2019-07-13 10:07 | NUR ---
tylenol tablet 2 tabs given and crushed it. with apple sauce
--- NOTE | 2019-07-13 12:00 | NUR ---
had lunch about 40% had boost 50%. eat by herself and sometimes with assists.
[2019-07-13 12:46] VITALS: BP_SYST 118
--- NOTE | 2019-07-13 14:00 | NUR ---
quite and resting.
--- NOTE | 2019-07-13 16:00 | NUR ---
sleeping no complaint made so far.
--- NOTE | 2019-07-13 16:23 | NUR ---
Nutrition F/U RD reviewed pt's current EMR including diet Hx, physician notes, nursing notes, pertinent labs/meds/procedures, care trends and care activity. Admission diagnosis: Acute Renal Failure and hyperkalemia PMH: R-sided pneumonia, HTN, anemia, dehydration, ESRD, HD, FTT, R-sided pleural effusion per physician notes Current Diet Order: Pureed Renal standard diet w/ Nepro TID x 5 days Subjective information: Pt was seen resting in bed during time of visit. Pt bed scale weight read 89.98 lb - may be inaccurate due to linens. RN reported no N/V/D/C and a bowel movement today. Current PO intake: 51% average x 5 meals/1 tray removed early Estimated Energy Expenditure (kcals/day) 0841-1545 kcal/day (30-35 kcal/kg IBW for weight gain promotion and HD status) Estimated Protein Required (g/day) 62-73 gm/day (1.2-1.4 gm/kg IBW for ESRD/HD, wt promotion) Estimated Fluid Required (l/day) Defer to MD for ESRD Problem/Etiology/Signs/Symptoms Suboptimal PO intake related to probable lack of appetite and altered level state as evidenced by FTT, BMI of 15.4 kg/m2, and documented report of pt eating poorly for more than one week. (*ongoing) Expected Outcomes/Goals - Monitor appetite and PO intake w/ goals of pt meeting greater than 65% of estimated nutritional needs, labs trending WNL, and skin integrity/wt maintenance. Dietitian Recommendations * Recommend continuing renal, pureed diet w/ Nepro TID. (1275 kcal and 54 gm of protein/day) * Encourage PO intake. * Continue Megace. Follow Up High Risk: F/U in 2-3 days Signed: 07/13/19 at 1624 by Iveth ESTRADA <Co-Signature Required> Co-Signed: 07/13/19 at [address]
--- NOTE | 2019-07-13 16:25 | NUR ---
Dietitian Recommendations * Recommend continuing renal, pureed diet w/ Nepro TID. (1275 kcal and 54 gm of protein/day) * Encourage PO intake. * Continue Tong. RETA, RD Please refer to Nutrition F/U for details. Signed: 07/13/19 at 1626 by Iveth ESTRADA <Co-Signature Required> Co-Signed: 07/13/19 at [address]
[2019-07-13 16:59] VITALS: BP_SYST 165
--- NOTE | 2019-07-13 18:00 | NUR ---
dr sheffield called back covering for dr goins and informed the result of ct of chest with moderate pneumothorax. ordered for oxygen at 2lnc. and chest x ray one view in am.
--- NOTE | 2019-07-13 18:21 | NUR ---
called respiratory therapist to start Oxygen at 2lnc. as ordered by dr sheffield.
--- NOTE | 2019-07-13 19:00 | NUR ---
Anjelica charge nurse informed Rayna Perkins that dr goins called regarding for possible chest tube placement and discontinue plavix po.
--- NOTE | 2019-07-13 19:24 | NUR ---
endorsed to incoming nurse Celina MCCARTY
--- NOTE | 2019-07-13 19:30 | NUR ---
Pt was received sitting up in bed fully awake and oriented to her name. Pt's daughter is at the bedside and spoon feeding pt. Pt is in no acute distress at this time. Fall and safety precautions are in place.
[2019-07-13 20:00] VITALS: BP_SYST 159
--- NOTE | 2019-07-13 21:30 | NUR ---
Pt is awake and drinking Nepro by herself. No c/o pain or discomfort and no acute distress noted. Saline lock in LAC is without any signs of infiltration.
--- NOTE | 2019-07-13 22:51 | NUR ---
Pt is sleeping quietly in bed. Fall and safety precautions are in place. Call light is with pt and bed alarm is on.
[2019-07-14] VITALS (8 sets, daily range): BP systolic 94–217
[2019-07-14] MEDS: hydrALAZINE HCL 20 MG/ML VIAL IVP PRN ×2 (00:44→22:40)
--- NOTE | 2019-07-14 00:44 | NUR ---
BP 217/80. Apresoline 10mg given IVP. Pt is resting comfortably in bed. Call light is with pt and bed alarm is on.
--- NOTE | 2019-07-14 01:00 | NUR ---
Pt is sleeping without any distress noted. Call light is with pt and bed alarm is on.
--- NOTE | 2019-07-14 02:23 | NUR ---
CONSULT: CONSULT CALLED FOR DR. GAIL NICE I SPOKE WITH JEAN COLVIN REASON FOR CONSULT: CHEST TUBE PLACEMENT REQUESTING CONSULT: DR. HARE MILIEU COUNSELOR"S PHONE NUMBER: [phone]
--- NOTE | 2019-07-14 03:00 | NUR ---
Pt is sleeping comfortably in bed. Fall and safety precautions are in place.
--- NOTE | 2019-07-14 05:00 | NUR ---
Pt is lying quietly in bed. BP 151/93. Fall and safety precautions are in place.
--- NOTE | 2019-07-14 06:19 | NUR ---
Pt is resting comfortably in bed. All pt's needs were attended to. Saline lock in LAC is without any signs of infiltration. Fall and safety precautions are in place. Will endorse to say shift nurse.
--- NOTE | 2019-07-14 07:15 | NUR ---
report received at the bedside. patient alert awake x 1. i am very sleepy and weak. breathing even and unlabored. abdomen soft and non distended. has iv access on the lt ac #22. saline lock. has permacath on the rt upper internal jugular area. bed low position, alarmed and locked. will continue to monitor patients status
--- NOTE | 2019-07-14 08:00 | NUR ---
DR GAIL NICE CALLED. AND CALLED BACK AND SAID CANNOT DO CHEST TUBE PLACEMENT, DUE VERY HECTIC SCHEDULE HE HAS AND WE CAN FIND ANOTHER SURGEON TO DO IT.
--- NOTE | 2019-07-14 08:20 | NUR ---
DR TYLER CALLED TO INFORMED REGARDING DR REYNOLDS CALLED BACK
--- NOTE | 2019-07-14 09:06 | NUR ---
Surgical consult called: for Dr. Cherry, regarding chest tube placement, ordered by Dr. Slaughter, spoke with Lisette at [facility].
[2019-07-14] MEDS: MEGESTROL ACETATE 400 MG/10 ML UDC PO SCH (09:18)
[2019-07-14] MEDS: ASPIRIN 81 MG TABLET(ECOTRIN) PO SCH (09:19)
[2019-07-14] MEDS: ATORVASTATIN 20 MG TABLET PO SCH (09:19)
[2019-07-14] MEDS: MULTIVITS,CA,MINERALS/IRON/FA 1 TABLET PO SCH (09:20)
[2019-07-14] MEDS: LABETALOL HCL 100 MG TABLET PO SCH ×2 (09:20→20:45)
[2019-07-14] MEDS: NIFEDIPINE 30 MG TAB.ER.24 PO SCH (09:22)
--- NOTE | 2019-07-14 10:00 | NUR ---
med pass with apple sauce on it.
--- NOTE | 2019-07-14 12:32 | NUR ---
called dr vasquez fpr hemodialysis today, if possible
--- NOTE | 2019-07-14 14:58 | NUR ---
Discharge Planning: DCP gave packet to Sonya from [place] (f [phone] P [phone]) DCP to follow up. Addendum: 07/14/19 at 1654 by Nimco Abrams DP DCP arranged transportation with [facility] ([phone]) Will Call to [facility] per Sonya gray [place] (P [phone]). Sonya will call nurse station with room number and number to report. Patient packet taken to nurse station, nurse made aware.
--- NOTE | 2019-07-14 15:10 | NUR ---
DC Planning: Notified/undated pt 's status candido Pulido for the transfer to [facility] to continue treatments. Dtr agreed with the possible transfer today. Per Sonya , the pt is accepted she is working on getting bed for the patient. -- Rayna MCCARTY made aware.
--- NOTE | 2019-07-14 15:40 | NUR ---
edmund machine adjuster leader case trim said possible d/c to [facility] if they have a bed available. still on the process. dialysis done at this time. with 1.5 liters out. patient still very sleepy. vitals signs stable.
--- NOTE | 2019-07-14 15:42 | NUR ---
dialysis ended with 1.5 liter out.
[2019-07-14] MEDS: VANCOMYCIN HCL 500 MG in NS 100 ML IV SCH (16:49)
--- NOTE | 2019-07-14 16:54 | NUR ---
iv antibiotic given.
--- NOTE | 2019-07-14 18:50 | NUR ---
dr briseida jefferson came spoke to the daughter Tess regarding the plan for possible chest tube placement, in case we need upon chest x ray tomorrow
--- NOTE | 2019-07-14 19:25 | NUR ---
endorsed to incoming nurse Lucia MCCARTY
--- NOTE | 2019-07-14 19:30 | NUR ---
Opening Note Received patient awake, resting in bed, nonlabored breathing on 2L NC. Daughter is visiting at bedside. Assessment and V/S taken. B/P is elevated 185/75 and HR 68, will follow up w/ PRN blood pressure medication. Side rails up 3x, bed is locked to lowest position, and call light w/in reach. Updated board and reviewed plan of care.
--- NOTE | 2019-07-14 20:45 | NUR ---
Labetalol B/P 201/78 and HR 67. Patient did not have patent IV site and gave scheduled medication - Labetalol PO B/P 201/78 and HR 67. Will monitor continue to monitor.
--- NOTE | 2019-07-14 20:55 | NUR ---
IV Start Removed infiltrated IV on LAC. Catheter tip visualized and no active bleeding. New IV # 22 gauge angiocath placed to LFA . Use of aseptic technique. Opsite placed over site. Blood return noted. Flushed with 10 cc of normal saline. No evidence of infiltration noted. Patient tolerated.
--- NOTE | 2019-07-14 21:12 | NUR ---
Dr. Dilip Cherry at bedside to evaluate patient.
--- NOTE | 2019-07-14 22:43 | NUR ---
Elevated B/P B/P is 202/81 and HR 81. Administered hydralazine IVP PRN as ordered for SBP over 160. Will continue to monitor.
--- NOTE | 2019-07-14 22:45 | NUR ---
ICE chips Patient requested ice chips and she was provided ice chips.
--- NOTE | 2019-07-15 00:10 | NUR ---
RN rounds Patient resting w/ eyes closed, yet arousable. Blood pressure remains elevated 200/78. Repositioned and is comfortable. Will continue to monitor.
[2019-07-15 00:41] VITALS: BP_SYST 200
[2019-07-15] MEDS: hydrALAZINE HCL 20 MG/ML VIAL IVP PRN ×3 (02:38→09:50)
--- NOTE | 2019-07-15 02:38 | NUR ---
hydralazine B/P is 172/64 and HR 72. Administered hydralazine PRN as ordered for SBP over 160. Patient requested a snack, she asked for mashed potatoes or oatmeal. I let her know those items are not available now and offered applesauce. She didn't like the applesauce and requested pudding, of which she ate 25%. Safety precautions in place, will continue to monitor.
--- NOTE | 2019-07-15 04:05 | NUR ---
Resting Patient is resting w/eyes clossed, nonlabored breathing, no sign of distress. Safety precautions maintained will continue to monitor.
--- NOTE | 2019-07-15 07:00 | NUR ---
Closing note / hydralazine B/P is 207/75 and HR 76. Administered hydralazine PRN as ordered for SBP over 160. Patient resting in comfortable position. Nonlabored breathing. Needs met throughout shift, Will endorse care.
--- NOTE | 2019-07-15 08:00 | NUR ---
RN INITIAL NOTES RECEIVED PATIENT IN BED AWAKE VERBALLY RESPONSIVE NO DISTRESS ABLE TO ANSWER QUESTIONS
[2019-07-15] MEDS: MEGESTROL ACETATE 400 MG/10 ML UDC PO SCH (08:31)
[2019-07-15] MEDS: ATORVASTATIN 20 MG TABLET PO SCH (08:32)
[2019-07-15] MEDS: LABETALOL HCL 100 MG TABLET PO SCH ×2 (08:33→20:35)
[2019-07-15] MEDS: ASPIRIN 81 MG TABLET(ECOTRIN) PO SCH (08:33)
[2019-07-15] MEDS: NIFEDIPINE 30 MG TAB.ER.24 PO SCH (08:34)
[2019-07-15] MEDS: MULTIVITS,CA,MINERALS/IRON/FA 1 TABLET PO SCH (08:36)
--- NOTE | 2019-07-15 09:00 | NUR ---
DR TYLER OCEANOLOGIST DR TYLER CALLED AND SPOKE WITH HER, DR XIONG STATED THAT SHE CALLED DAUGHTER SHANIA AND DISCUSSED PLAN OF CHEST TUBE PLACEMENT D/T PLEURAL EFFUSION BUT PER DAUGHTER SHANIA THEY REFUSED TO HAVE THE PROCEDURE DONE AND PER DR XIONG PATIENT IS OK TO GO LTAC IF DC BY THE PCP
--- NOTE | 2019-07-15 10:00 | NUR ---
BP STILL HI PATIENT BP READINGS STILL HI DESPITE OF ALL 9 AM BP MEDS GIVEN , CONT TO MONITOR AND NO SIGN OF HYPERTENSIVE REACTION ,
--- NOTE | 2019-07-15 12:00 | NUR ---
FAMILY AT BEDSIDE PATIENT FAMILY AT BEDSIDE AND STATED THAT THEY DONT AGREE FOR THE CHEST TUBE PLANNED , HER MOM IS OK AND COMFORTABLE , PER DTR MON ALWAYS HAD A HIGH BP READINGS EXPLAINED PLAN OF CARE WITH DC PLAN TO LTAC
[2019-07-15 12:30] VITALS: BP_SYST 150
--- NOTE | 2019-07-15 14:00 | NUR ---
NOSE BLEED DR HARE CAME INFORMED PATIENT HAD NOSE BLEED AND STILL WITH HI BP , PATIENT FAMILY AT BEDSIDE CONCERNED ABOUT PATIENT IS SLEEPY AND DONT SPEAK WITH THEM MOST OF THE TIME , INFORMED DR HARE PATIENT HAS BEEN CONVERSING WITH ME THIS AM AND ANSWERS QUESTION .DR HARE ORDERED FOR CT OF THE HEAD AND NEUROLOGY CONSULT
--- NOTE | 2019-07-15 14:11 | NUR ---
CONSULTATION PAGED REASON FOR CONSULTATION:SLEEPY WAS CONSULT CALLED?Y PERSON WHO WAS NOTIFIED:DANYA CONSULTING PHYSICIAN:HÉCTOR LOVE ELECTRONICS INSPECTOR SPECIALTY:NEURO ELECTRONICS INSPECTOR PHONE NUMBER:[phone] ORDERING PHYSICIAN:MARE SUÁREZ
[2019-07-15] MEDS ORDERED: cloNIDine HCL 0.1 MG TABLET PO PRN (14:15)
--- NOTE | 2019-07-15 15:00 | NUR ---
CT OF THE HEAD DR HARE FOLLOWED PATIENT IN THE CT DEPT AND SAID IF PATIENT CT OF THE HEAD IS CLEAR PATIENT WILL BE DC TO LTAC Addendum: 07/15/19 at 1801 by Shireen Maier RN PATIENT CT OF THE HEAD NEGATIVE PATIENT ON AND OFF SLEEPY STILL BUT RESPONSE TO QUESTION , DR HARE CLEARED PATIENT FOR DC TO LTAC AND CANCELLED NEUROLOGY CONSULT
[2019-07-15 15:12] VITALS: BP_SYST 167
--- NOTE | 2019-07-15 15:59 | NUR ---
Discharge Planning: DCP spoke to nurse making her aware pt will go to [facility] # to report [phone] Rm 203A, transportation with [facility] ([phone]) Will Call. Patient packet at nurse station
--- NOTE | 2019-07-15 16:18 | NUR ---
Nutrition F/U RD reviewed pt's current EMR including diet Hx, physician notes, nursing notes, pertinent labs/meds/procedures, care trends and care activity. Admission diagnosis: Acute Renal Failure and hyperkalemia PMH: R-sided pneumonia, HTN, UTI, CVA, anemia, dehydration, ESRD, HD, FTT, R-sided pleural effusion per physician notes Current Diet Order: Pureed Renal standard diet w/ Nepro TID x7 days Subjective information: Pt was seen resting in bed with two daughters at bedside. RN stated that pt has a good appetite, slow eater, and family members help feed her. Pt had two bottles of Nepro w/ 90% PO intake at bedside. PO average intake of 62% x 6 meals. Pt has a chest tube placement consult. Bed scale read 95.2 lb - may be inaccurate d/t linens. DI encouraged PO intake and ONS. Estimated Energy Expenditure (kcals/day) (* ongoing) 0027-9598 kcal/day (30-35 kcal/kg IBW for weight gain promotion and HD status) Estimated Protein Required (g/day) 62-73 gm/day (1.2-1.4 gm/kg IBW for ESRD/HD, wt promotion) Estimated Fluid Required (l/day) Defer to MD for ESRD Problem/Etiology/Signs/Symptoms Suboptimal PO intake related to probable lack of appetite and altered level state as evidenced by FTT, BMI of 15.4 kg/m2, and documented report of pt eating poorly for more than one week. (*ongoing) Expected Outcomes/Goals - Monitor appetite and PO intake w/ goals of pt meeting greater than 65% of estimated nutritional needs, labs trending WNL, and skin integrity/wt maintenance. Dietitian Recommendations * Recommend continuing renal, pureed diet w/ Nepro TID. (1275 kcal and 54 gm of protein/day) * Encourage PO intake. * Continue Megace. Follow Up High Risk: F/U in 2-3 days
--- NOTE | 2019-07-15 16:20 | NUR ---
Dietitian Recommendations * Recommend continuing renal, pureed diet w/ Nepro TID. (1275 kcal and 54 gm of protein/day) * Encourage PO intake. * Continue Tong. RETA, RD Please refer to Nutrition F/U for details. Signed: 07/15/19 at 1620 by Iveth ESTRADA <Co-Signature Required> Co-Signed: 07/15/19 at [address]
[2019-07-15 16:50] VITALS: BP_SYST 157
--- NOTE | 2019-07-15 17:10 | NUR ---
AMBULANCE ARRANGEMENT MADE CALLED [facility] AT SPOKE WITH DISPATCH TO SCHEDULE A ORNAMENTAL MACHINE OPERATOR AT 2030 TO GO TO [facility].
--- NOTE | 2019-07-15 19:14 | NUR ---
ENDORSEMENT WILL ENDORSE TO NEST SHIFT CONT CARE AND WILL DC PATIENT TO LTAC DTR SHANIA NIEVES SHE WILL COME AND TRY TO FED MOM , PATIENT BP HAS GONE DOWN TO 159/79 NO DISTRESS AND SHE ANSWERS QUESTIONS ASKED NO COMPLAIN OF PAIN
--- NOTE | 2019-07-15 19:15 | NUR ---
OPENING NOTES Receive patient from AM Nurse. Patient is awake with daughter at the bedside feeding the patient, tolerating well, HOB raised. No signs of acute respiratory distress. No SOB. Patient denies pain at this time. SCD's attached and operating. Call light within reach. Bed alarm is on. Bed locked and lowest position. Safety Precaution in place.
[2019-07-15 20:00] VITALS: BP_SYST 147
[2019-07-15] MEDS ORDERED: NIFEDIPINE 30 MG TAB.ER.24 PO SCH (21:00)
--- NOTE | 2019-07-15 21:11 | NUR ---
DISCHARGE Report given to SHWETHA Badillo, [facility]. Patient has no sign of respiratory distress. No SOB. IV site is patent, no signs of infiltration or infection noted. Miquel Catheter right upper chest, dressing place clean and dry. Wristband remove. All needs met and attended throughout the shift. Patient escorted out of facility via gurney.
[2019-07-16] MEDS ORDERED: VANCOMYCIN HCL 500 MG in NS 100 ML IV SCH (15:00)
== END 2019-07-15 21:11 | DRG 871 ==
LOC: SED 17:34 → STU 23:06
PROVIDERS: ADMIT Internal Medicine; ATTEND Internal Medicine
PROC: 5A1D70Z Performance of Urinary Filtration, Intermittent, Less than 6 Hours Per Day (ICD-10-PCS; 2019-07-07)
PROC: 0W993ZZ Drainage of Right Pleural Cavity, Percutaneous Approach (ICD-10-PCS; principal; 2019-07-08)
PROC: 5A1D70Z Performance of Urinary Filtration, Intermittent, Less than 6 Hours Per Day (ICD-10-PCS; 2019-07-09)
PROC: 5A1D70Z Performance of Urinary Filtration, Intermittent, Less than 6 Hours Per Day (ICD-10-PCS; 2019-07-12)
PROC: 5A1D70Z Performance of Urinary Filtration, Intermittent, Less than 6 Hours Per Day (ICD-10-PCS; 2019-07-14)
DX: A41.9 Sepsis, unspecified organism (principal); J18.9 Pneumonia, unspecified organism; N18.6 End stage renal disease; N17.9 Acute kidney failure, unspecified; I12.0 Hypertensive chronic kidney disease with stage 5 chronic kidney disease or end stage renal disease; N39.0 Urinary tract infection, site not specified; J91.8 Pleural effusion in other conditions classified elsewhere; J93.9 Pneumothorax, unspecified; Z68.1 Body mass index [BMI] 19.9 or less, adult; I69.351 Hemiplegia and hemiparesis following cerebral infarction affecting right dominant side; E87.5 Hyperkalemia; D63.1 Anemia in chronic kidney disease; E78.5 Hyperlipidemia, unspecified; E11.22 Type 2 diabetes mellitus with diabetic chronic kidney disease; R62.7 Adult failure to thrive; R04.0 Epistaxis; D69.6 Thrombocytopenia, unspecified; Z79.82 Long term (current) use of aspirin; Z87.891 Personal history of nicotine dependence; Z99.2 Dependence on renal dialysis; Z79.899 Other long term (current) drug therapy; Z91.018 Allergy to other foods
CPT/HCPCS: 32555; 36415; 70450-TC; 71045; 71250-TC; 80048; 80053; 80202-TC; 81000-TC; 82947-TC; 83605; 83615-TC; 83690-TC; 83880; 84157-TC; 84439; 84443-TC; 84484; 85025; 85610-TC; 85730-TC; 87040-TC; 87070-TC; 87081; 87086; 87101; 87116; 88108; 88305; 89051-TC; 89060-TC; 90935; 90937; 93005; 96361; 96365; 96375; 97110-GP; 99285; C1729; G0378; J0360; J0696; J1644; J1956; J2405; J3370; J7030; J7060